=== PATIENT | female | born 1935 | race Caucasian/White ===

== ENCOUNTER 2018-02-05 15:28 | Emergency (ER) | payer OTHER, MEDICARE ==
[2018-02-05 16:26] LABS: Absolute Lymphocytes (CBC) 0.8 K/uL (0.7-4.9); Absolute Neutrophil 6.8 K/uL (1.8-8.0); Basophils % 0.7 % (0-1.3); Eosinophils % 0.5 % (0-4.4); Hematocrit 41.1 % (36.0-45.0); MCH 33.3 pg (27.0-35.0); MCV 96.1 fL (80-100); MPV 7.3 fL (7.6-11.3); Monocytes % 11.2 % (3.3-12.3); RBC Red Blood Cell Count 4.28 M/uL (3.86-4.86)
[2018-02-05 16:40] LABS: Albumin 3.9 g/dL (3.4-5.0); Bilirubin Direct 0.2 mg/dL (0-0.2); Bilirubin Total 0.8 mg/dL (0.2-1.0); Potassium 4.3 mmol/L (3.5-5.1); Protein, Total 7.1 g/dL (6.4-8.2)
--- NOTE | 2018-02-05 18:53 | RAD REPORT ---
EXAM DESCRIPTION: CT - Stone Protocol - 02/05/2018 6:37 pm CLINICAL HISTORY: Back pain radiating to the right lower quadrant, possible diverticulitis COMPARISON: None. TECHNIQUE: Axial 5 mm thick images were obtained without oral or IV contrast. The [id number] span s the entirety of the system including uppermost abdomen and lung bases. All CT scans are performed using dose optimization technique as appropriate and may include automated exposure control or mA/KV adjustment according to patient size. FINDINGS: No hydronephrosis is present and no obstructing ureteral calculi. No suspicious renal mass es. Isodense masses and pyelonephritis are not excluded on a stone protocol CT scan. Urinary bladder is contracted. No bladder calculi seen. Uterus and ovaries show no suspicious finding for age. Imaged portions of the liver, spleen and pancreas show no suspicious findings on non-contrast imaging . No gallbladder or biliary tree abnormality identified. No significant adrenal finding. No suspicious bowel findings. Diverticulosis is present without diverticulitis. Hyperdense material i n the colon is presumed to be medication. No mass or bulky lymphadenopathy noted. No free air, free fluid or inflammatory stranding. Patient wilkins s a large hiatal hernia with approximately 1/3 of the stomach intrathoracic. Disc and bony degenerative changes are present. There is advanced lumbar degenerative change with a l eft convex scoliotic curvature. No pathologic bone process. IMPRESSION: No hydronephrosis or obstructing calculus. No acute finding seen. Bladder is mostly c ontracted. Isodense masses and pyelonephritis are not excluded on stone protocol technique. Left-sided diverticulosis without diverticulitis. No acute GI process seen. Large hiatal hernia with approximately 1/3 of the stomach intrathoracic.
[2018-02-05] MEDS ORDERED: NA CHLORIDE 0.9% 500 ML ONE (18:55)
--- NOTE | 2018-02-05 19:08 | EDPHYS ---
Physician Documentation [facility] Name: Veronica Hernadez Age: 82 yrs Sex: Female : 1935 Arrival Date: 02/05/2018 Time: 15:32 Bed 20 Private MD: out of town, doctor ED Physician Jerrod Mayen HPI: 02/05 17:00 This 82 yrs old Female presents to ER via Ambulatory with complaints of Back pm1 Pain. 17:00 The patient presents with pain that is acute. pm1 17:00 The symptoms are located in the right low back. Onset: The symptoms/episode pm1 began/occurred 4 day(s) ago. The pain radiates to the right lower quadrant. Associated signs and symptoms: Pertinent negatives: chest pain, dysuria, fever, headache, numbness, tingling, vomiting, weakness. The problem was sustained from unknown cause. Modifying factors: The patient symptoms are alleviated by nothing, the patient symptoms are aggravated by bending, movement. Severity of symptoms: in the emergency department the symptoms are unchanged. The patient has been recently seen by a physician: patient went to [facility] ER for evaluation of her right low back pain and was diagnosed with musculoskeletal pain and discharged with Tylenol #3. Patient did not take the medications for pain. Contacted her PCP over the phone and was prescribed Cipro and Flagyl for possible diverticulitis. Patient is presenting here today because her pain has not improved with antibiotics. Historical: - Allergies: 15:50 Aspirin; aj - Home Meds: 15:50 Tylenol #3 Oral [Active]; levothyroxine 50 mcg tab 1 tab once daily [Active]; aj omeprazole 20 mg Oral cpDR 1 cap once daily [Active]; diltiazem HCl 240 mg Oral cp24 1 cap once daily [Active]; olmesartan oral oral [Active]; famotidine 20 mg Oral tab 1 tab once daily [Active]; cholestyramine (with sugar) oral oral [Active]; Cipro 500 mg Oral tab 1 tab 2 times per day [Active]; Flagyl 500 mg Oral tab 1 tab every 6 hours [Active]; - PMHx: 15:50 Diverticulitis; Hypothyroidism; GERD; Hypertension; aj - Immunization history:: Adult Immunizations up to date. - Social history:: Smoking status: Patient/guardian denies using tobacco. - Ebola Screening: : Patient negative for fever greater than or equal to 101.5 degrees Fahrenheit, and additional compatible Ebola Virus Disease symptoms Patient denies exposure to infectious person Patient denies travel to an Ebola-affected area in the 21 days before illness onset No symptoms or risks identified at this time. ROS: 17:00 Constitutional: Negative for fever, chills, and weight loss, Eyes: Negative for injury, pm1 pain, redness, and discharge, ENT: Negative for injury, pain, and discharge, Neck: Negative for injury, pain, and swelling, Cardiovascular: Negative for chest pain, palpitations, and edema, Respiratory: Negative for shortness of breath, cough, wheezing, and pleuritic chest pain, Abdomen/GI: Negative for abdominal pain, nausea, vomiting, diarrhea, and constipation. 17:00 : Negative for injury, bleeding, discharge, and swelling, MS/Extremity: Negative for injury and deformity, Skin: Negative for injury, rash, and discoloration, Neuro: Negative for headache, weakness, numbness, tingling, and seizure. 17:00 Back: Positive for flank pain, on the right. Exam: 17:00 Constitutional: This is a well developed, well nourished patient who is awake, alert, pm1 and in no acute distress. Head/Face: Normocephalic, atraumatic. Eyes: Pupils equal round and reactive to light, extra-ocular motions intact. Lids and lashes normal. Conjunctiva and sclera are non-icteric and not injected. Cornea within normal limits. Periorbital areas with no swelling, redness, or edema. ENT: Nares patent. No nasal discharge, no septal abnormalities noted. Tympanic membranes are normal and external auditory canals are clear. Oropharynx with no redness, swelling, or masses, exudates, or evidence of obstruction, uvula midline. Mucous membranes moist. Neck: Trachea midline, no thyromegaly or masses palpated, and no cervical lymphadenopathy. Supple, full range of motion without nuchal rigidity, or vertebral point tenderness. No Meningismus. Chest/axilla: Normal chest wall appearance and motion. Nontender with no deformity. No lesions are appreciated. Cardiovascular: Regular rate and rhythm with a normal S1 and S2. No gallops, murmurs, or rubs. Normal PMI, no JVD. No pulse deficits. Respiratory: Lungs have equal breath sounds bilaterally, clear to auscultation and percussion. No rales, rhonchi or wheezes noted. No increased work of breathing, no retractions or nasal flaring. 17:00 Skin: Warm, dry with normal turgor. Normal color with no rashes, no lesions, and no evidence of cellulitis. MS/ Extremity: Pulses equal, no cyanosis. Neurovascular intact. Full, normal range of motion. 17:00 Abdomen/GI: Inspection: abdomen appears normal, Bowel sounds: normal, Palpation: abdomen is soft and non-tender, in all quadrants, mass, is not appreciated, rebound tenderness, is not appreciated. 17:00 Back: pain, that is mild, of the right low back, vertebral tenderness, is not appreciated. 17:00 Neuro: Orientation: is normal, Motor: strength is normal, strength is 5/5 in all extremities, Gait: is steady, at a normal pace, without difficulty. Vital Signs: 15:51 BP 154 / 75; Pulse 100; Resp 18; Temp 97.4; Pulse Ox 98% on R/A; Weight 95.25 kg; aj Height 5 ft. 4 in. (162.56 cm); 16:42 BP 139 / 56; Pulse 94; Resp 18; Pulse Ox 99% on R/A; hj 17:19 BP 134 / 54; Pulse 81; Resp 18; Pulse Ox 99% on R/A; hj 18:07 BP 133 / 57; Pulse 82; Resp 18; Pulse Ox 100% on R/A; hj 19:21 BP 150 / 70; Pulse 80; Resp 18; Temp 97.7(O); Pulse Ox 98% ; ea 19:36 BP 151 / 75; Pulse 88; Resp 18; Pulse Ox 98% on R/A; mt 15:51 Body Mass Index 36.05 (95.25 kg, 162.56 cm) aj MDM: 15:52 Patient medically screened. pm1 19:02 Data reviewed: vital signs. Data interpreted: Pulse oximetry: on room air is 100 %. pm1 Interpretation: normal. Counseling: I had a detailed discussion with the patient and/or guardian regarding: the historical points, exam findings, and any diagnostic results supporting the discharge/admit diagnosis, lab results, radiology results, the need for outpatient follow up, to return to the emergency department if symptoms worsen or persist or if there are any questions or concerns that arise at home. 19:02 ED course: Patient aware of all chronic findings on the CT scan. Patient knows about pm1 the diverticulosis and hiatal hernia. Patient aware of her hyponatremia. It is a chronic condition for her. Instructed the patient to continue taking antibiotics because I did not initiate them. Instructed to contact her PCP to discuss plan for antibiotics. Patient has Tylenol #3 but did not take them since evaluation at [facility]. instructed patient to initiate them for pain. Will give the patient tramadol PO here and if effective for her pain I will give her a prescription. 02/05 16:17 Order name: Basic Metabolic Panel EDMS 02/05 16:17 Order name: Liver (Hepatic) Function EDMS 02/05 16:17 Order name: Lipase EDMS 02/05 16:17 Order name: Creatinine (Radiology Only) EDMS 02/05 16:17 Order name: CBC with Automated Diff EDMS 02/05 16:27 Order name: CBC with Automated Diff; Complete Time: 16:29 EDMS 02/05 16:40 Order name: Basic Metabolic Panel; Complete Time: 17:03 EDMS 02/05 16:40 Order name: Liver (Hepatic) Function; Complete Time: 17:03 EDMS 02/05 16:03 Order name: IV Saline Lock; Complete Time: 16:10 pm1 02/05 16:03 Order name: Labs collected and sent; Complete Time: 16:11 pm1 02/05 16:03 Order name: Urine Dipstick-Ancillary (obtain specimen); Complete Time: 18:31 pm1 02/05 16:40 Order name: Lipase; Complete Time: 17:03 EDMS 02/05 16:54 Order name: Creatinine (Radiology Only); Complete Time: 17:03 EDMS 02/05 17:06 Order name: CT Stone Protocol; Complete Time: 18:54 pm1 02/05 18:29 Order name: Urine Dipstick--Ancillary (enter results); Complete Time: 19:43 eb Administered Medications: 18:47 Drug: NS 0.9% 500 ml Route: IV; Rate: bolus; Site: left antecubital; hj 19:40 Follow up: IV Status: Completed infusion; IV Intake: 500ml ea 19:09 Drug: traMADol 50 mg Route: PO; ea 19:50 Follow up: Response: No adverse reaction; Pain is decreased ea Disposition: 02/06 07:18 Co-signature as Attending Physician, Jerrod Mayen MD. rn Disposition: 02/05/18 19:08 Discharged to Home. Impression: Low back pain. - Condition is Stable. - Discharge Instructions: Back Pain, Adult, Musculoskeletal Pain, Back Injury Prevention, [id number]. - Prescriptions for Tramadol 50 mg Oral Tablet - take 1 tablet by ORAL route every 8 hours as needed; 12 tablet. - Medication Reconciliation Form, Thank You Letter, Antibiotic Education, Prescription Opioid Use form. - Follow up: Emergency Department; When: As needed; Reason: Worsening of condition. Follow up: Private Physician; When: 2 - 3 days; Reason: Recheck today's complaints, Continuance of care, Re-evaluation by your physician. - Problem is new. - Symptoms have improved. Signatures: Dispatcher [employer] [facility] Melody Healy RN RN aj Nieto, Roman, MD MD rn Joaquin, Henry, RN RN hj Marinas, Patrick, NP [employer] pm1 Kiah Thomas RN RN ea Corrections: (The following items were deleted from the chart) 02/05 16:11 16:03 UA MICROSCOPIC+U.LAB.BRZ ordered. [facility] 18:07 16:03 BASIC METABOLIC PANEL+C.LAB.BRZ ordered. [facility] 18:07 16:03 CBC+H.LAB.BRZ ordered. [facility] 18:07 16:03 Creatinine for Radiology+C.LAB.BRZ ordered. [facility] 18:07 16:03 HEPATIC FUNCTION+C.LAB.BRZ ordered. [facility] 18:07 16:03 LIPASE+C.LAB.BRZ ordered. [facility] 20:06 19:08 02/05/2018 19:08 Discharged to Home. Impression: Low back pain. Condition is ea Stable. Forms are Medication Reconciliation Form, Thank You Letter, Antibiotic Education, Prescription Opioid Use. Follow up: Emergency Department; When: As needed; Reason: Worsening of condition. Follow up: Private Physician; When: 2 - 3 days; Reason: Recheck today's complaints, Continuance of care, Re-evaluation by your physician. Problem is new. Symptoms have improved. pm1
--- NOTE | 2018-02-05 19:08 | ER ---
Nurse's Notes [facility] Name: Veronica Hernadez Age: 82 yrs Sex: Female : 1935 Arrival Date: 02/05/2018 Time: 15:32 Bed 20 Private MD: out of town, doctor Diagnosis: Low back pain Presentation: 02/05 15:46 Presenting complaint: Patient states: Low back pain that radiates around to RLQ. aj Patient reports being seen in [facility] ER and DX with musculoskeletal pain. Patient called PCP on Saturday and started on ABX to treat possible diverticulitis. Patient reports no improvement with ABX x 48 hours. Reports pain is worse in the morning and goes away completely when laying down. Transition of care: patient was not received from another setting of care. Onset of symptoms was February 02, 2018. Risk Assessment: Do you want to hurt yourself or someone else? Patient reports no desire to harm self or others. Initial Sepsis Screen: Does the patient meet any 2 criteria? No. Patient's initial sepsis screen is negative. Does the patient have a suspected source of infection? No. Patient's initial sepsis screen is negative. Care prior to arrival: None. 15:46 Method Of Arrival: Ambulatory 15:46 Acuity: THERON 4 aj Triage Assessment: 15:51 General: Appears in no apparent distress. comfortable, Behavior is calm, cooperative, aj appropriate for age. Pain: Complains of pain in buttocks. Neuro: Level of Consciousness is awake, alert, obeys commands, Oriented to person, place, time, situation, Appropriate for age. Respiratory: Airway is patent Respiratory effort is even, unlabored, Respiratory pattern is regular, symmetrical. Derm: Skin is intact, is healthy with good turgor, Skin is pink, warm \T\ dry. normal. Musculoskeletal: Range of motion: intact in all extremities, Reports pain in buttocks. Historical: - Allergies: 15:50 Aspirin; aj - Home Meds: 15:50 Tylenol #3 Oral [Active]; levothyroxine 50 mcg tab 1 tab once daily [Active]; aj omeprazole 20 mg Oral cpDR 1 cap once daily [Active]; diltiazem HCl 240 mg Oral cp24 1 cap once daily [Active]; olmesartan oral oral [Active]; famotidine 20 mg Oral tab 1 tab once daily [Active]; cholestyramine (with sugar) oral oral [Active]; Cipro 500 mg Oral tab 1 tab 2 times per day [Active]; Flagyl 500 mg Oral tab 1 tab every 6 hours [Active]; - PMHx: 15:50 Diverticulitis; Hypothyroidism; GERD; Hypertension; aj - Immunization history:: Adult Immunizations up to date. - Social history:: Smoking status: Patient/guardian denies using tobacco. - Ebola Screening: : Patient negative for fever greater than or equal to 101.5 degrees Fahrenheit, and additional compatible Ebola Virus Disease symptoms Patient denies exposure to infectious person Patient denies travel to an Ebola-affected area in the 21 days before illness onset No symptoms or risks identified at this time. Screenin:53 Abuse screen: Denies threats or abuse. Denies injuries from another. Nutritional hj screening: No deficits noted. Tuberculosis screening: No symptoms or risk factors identified. Fall Risk Secondary diagnosis (15 points). Assessment: 15:50 General: Appears in no apparent distress. uncomfortable, Behavior is calm, cooperative, hj appropriate for age. Pain: Complains of pain in abdomen. Neuro: Level of Consciousness is awake, alert, obeys commands, Oriented to person, place, time, situation, Appropriate for age. Cardiovascular: Capillary refill < 3 seconds Patient's skin is warm and dry. Respiratory: Airway is patent Respiratory effort is even, unlabored, Respiratory pattern is regular, symmetrical. GI: Abdomen is non-distended, Reports lower abdominal pain. : No signs and/or symptoms were reported regarding the genitourinary system. EENT: No signs and/or symptoms were reported regarding the EENT system. Derm: No signs and/or symptoms reported regarding the dermatologic system. Musculoskeletal: No signs and/or symptoms reported regarding the musculoskeletal system. 16:45 Reassessment: Patient and/or family updated on plan of care and expected duration. Pain hj level reassessed. Patient is alert, oriented x 3, equal unlabored respirations, skin warm/dry/pink. awaiting results and POC;. 17:19 Reassessment: Patient and/or family updated on plan of care and expected duration. Pain hj level reassessed. Patient is alert, oriented x 3, equal unlabored respirations, skin warm/dry/pink. no further concerns;. 18:07 Reassessment: awaiting CT;. hj 18:21 Reassessment: wheeled to CT;. hj 18:35 Reassessment: wheeled back to room;. hj 19:19 General: Appears in no apparent distress. Behavior is calm, cooperative, appropriate ea for age. Pain: Complains of pain in abdomen. Neuro: Level of Consciousness is awake, alert, obeys commands, Oriented to person, place, time, situation. Cardiovascular: Heart tones S1 S2 present Patient's skin is warm and dry. Respiratory: Airway is patent Respiratory effort is even, unlabored, Respiratory pattern is regular, symmetrical, Breath sounds are clear bilaterally. GI: Abdomen is non-distended, Bowel sounds present X 4 quads. Reports lower abdominal pain. : No signs and/or symptoms were reported regarding the genitourinary system. EENT: No signs and/or symptoms were reported regarding the EENT system. Derm: No signs and/or symptoms reported regarding the dermatologic system. Skin is pink, warm \T\ dry. Musculoskeletal: No signs and/or symptoms reported regarding the musculoskeletal system. 19:55 Reassessment: Patient and/or family updated on plan of care and expected duration. Pain ea level reassessed. Patient is alert, oriented x 3, equal unlabored respirations, skin warm/dry/pink. Discharge instructions given to patient,verbalized the understanding of instrucitons. Vital Signs: 15:51 BP 154 / 75; Pulse 100; Resp 18; Temp 97.4; Pulse Ox 98% on R/A; Weight 95.25 kg; aj Height 5 ft. 4 in. (162.56 cm); 16:42 BP 139 / 56; Pulse 94; Resp 18; Pulse Ox 99% on R/A; hj 17:19 BP 134 / 54; Pulse 81; Resp 18; Pulse Ox 99% on R/A; hj 18:07 BP 133 / 57; Pulse 82; Resp 18; Pulse Ox 100% on R/A; hj 19:21 BP 150 / 70; Pulse 80; Resp 18; Temp 97.7(O); Pulse Ox 98% ; ea 19:36 BP 151 / 75; Pulse 88; Resp 18; Pulse Ox 98% on R/A; mt 15:51 Body Mass Index 36.05 (95.25 kg, 162.56 cm) ED Course: 15:32 Patient arrived in ED. mr 15:32 out of town, doctor is Private Physician. mr 15:47 Triage completed. aj 15:51 Arm band placed on right wrist. Patient placed in an exam room. aj 15:52 Aric Irizarry, JOSE is Primary Nurse. 15:52 Darien Doty NP is PHCP. pm1 15:52 Jerrod Mayen MD is Attending Physician. pm1 15:53 Patient has correct armband on for positive identification. Placed in gown. Bed in low hj position. Call light in reach. Side rails up X 1. Adult w/ patient. 16:10 Initial lab(s) drawn, by me, sent to lab. Inserted saline lock: 20 gauge in left hj antecubital area, using aseptic technique. Blood collected. 18:[address] via wheelchair. in 18:37 CT Stone Protocol In Process Unspecified. EDMS 18:38 CT completed. Patient tolerated procedure well. Patient moved back from [place]. nj 19:21 No provider procedures requiring assistance completed. ea 19:50 IV discontinued, intact, bleeding controlled, No redness/swelling at site. Pressure ea dressing applied. Administered Medications: 18:47 Drug: NS 0.9% 500 ml Route: IV; Rate: bolus; Site: left antecubital; hj 19:40 Follow up: IV Status: Completed infusion; IV Intake: 500ml ea 19:09 Drug: traMADol 50 mg Route: PO; ea 19:50 Follow up: Response: No adverse reaction; Pain is decreased ea Intake: 19:40 IV: 500ml; Total: 500ml. ea Outcome: 19:08 Discharge ordered by . pm1 19:55 Discharged to home ambulatory, with family. ea 19:55 Condition: improved 19:55 Discharge instructions given to patient, family, Instructed on discharge instructions, follow up and referral plans. medication usage, Demonstrated understanding of instructions, follow-up care, medications, Prescriptions given X 1. 20:06 Patient left the ED. ea Signatures: Dispatcher [employer] EDMS Melody Healy RN RN aj GandhiDaylin mr Aric Irizarry RN RN Darien Doty NP [employer] EXECUTIVE pm1 Karthik Marvin Moriah mt Antunez, Elena, RN RN ea Corrections: (The following items were deleted from the chart) 15:51 15:46 Presenting complaint: Patient states: Low back pain that radiates around to RLQ. aj Patient reports being seen in [facility] ER and DX with musculoskeletal pain. Patient called PCP on Saturday and started on ABX to treat possible diverticulitis. Patient reports no improvement with ABX x 48 hours aj 15:46 Acuity: THERON 3 aj aj
[2018-02-05 19:11] LABS: Urine Blood NEGATIVE (NEG); Urine Glucose NEGATIVE (NEG); Urine Protein NEGATIVE (NEG); Urine Specific Gravity 1.015 (1.005-1.030)
[2018-02-05] MEDS ORDERED: TRAMADOL HCL 50 MG TAB ONE (19:12)
== END 2018-02-05 20:06 | disposition home or self-care (01) ==
LOC: ER 15:28
DX: M54.5 Low back pain (principal); I10 Essential (primary) hypertension; E03.9 Hypothyroidism, unspecified; Z88.6 Allergy status to analgesic agent
CPT/HCPCS: 36415; 74176; 76377; 80048; 80076; 81003; 83690; 85025; 96360; 99284

== ENCOUNTER 2018-09-04 14:13 | Observation (INO) | payer OTHER, MEDICARE ==
--- OUTSIDE RECORDS SUMMARY | 2018-09-04 14:40 | XMS REPORT | Clinical Summary ---
:1935 Author Organization [facility] Address [address] [place] [address] Care Team Providers Name Role Phone Ramonita Medley MD Primary Care Provider Allergies Active Allergy Reactions Severity Noted Date Comments Qom-Jfnvryzbobopt-Rctf-Buffers Other (See Comments) 07/24/2018 Causes asthma Hydrochlorothiazide GI Intolerance Triamterene GI Intolerance Medications Medication Sig Dispensed Refills Start End Status Date Date levothyroxine levothyroxine 50 0 01/25/20 Active (SYNTHROID, LEVOXYL) mcg tablet 15 50 mcg tablet omeprazole (PriLOSEC) TK 1 C PO QD IN 3 05/15/19 Active 20 MG capsule THE MORNING 19 diltiazem CD (CARTIA Cartia XT 240 mg 0 04/12/20 Active XT) 240 MG 24 hr capsule,extended 15 capsule release olmesartan (BENICAR) TK 1 T PO QD 3 05/22/19 Active 40 MG tablet 19 famotidine (PEPCID) 20 TK 1 T PO QD HS 2 05/15/19 Active MG tablet 19 CALCIUM ORAL Take by mouth. 0 Active mvi, adult with vit K Infuse into a 0 Active (multiple vitamin) venous catheter. 3,300 unit- 150 mcg/10 mL injection psyllium husk Take by mouth. 0 Active (METAMUCIL ORAL) multivitamin with Take by mouth. 0 Active minerals (HAIR,SKIN AND NAILS ORAL) naproxen (NAPROSYN) Take by mouth 2 0 Active 125 mg/5 mL suspension (two) times a day. methylPREDNISolone follow package 21 tablet 0 07/09/19 (MEDROL, BUSHRA,) 4 mg directions 19 019 tabletIndications: Low back pain, unspecified back pain laterality, unspecified chronicity, with sciatica presence unspecified, Degenerative scoliosis in adult patient, Lumbar radiculopathy, acute meloxicam (MOBIC) 15 Take 1 tablet (15 15 tablet 0 07/09/19 Discontinued mg tabletIndications: mg total) by 19 019 Low back pain, mouth daily for unspecified back pain 14 days. laterality, unspecified chronicity, with sciatica presence unspecified, Degenerative scoliosis in adult patient, Lumbar radiculopathy, acute meloxicam (MOBIC) 15 TAKE 1 TABLET(15 90 tablet 0 07/12/19 Discontinued mg tabletIndications: MG) BY MOUTH 19 019 Low back pain, DAILY FOR 14 DAYS unspecified back pain laterality, unspecified chronicity, with sciatica presence unspecified, Degenerative scoliosis in adult patient, Lumbar radiculopathy, acute acetaminophen-codeine Take 1-2 tablets 10 tablet 0 07/17/19 (TYLENOL WITH CODEINE by mouth every 4 19 019 #3) 300-30 mg per (four) hours as tablet needed for moderate pain for up to 5 days. Active Problems Problem Noted Date Carpal tunnel syndrome of left wrist 07/21/2018 Overview: Added automatically from request for surgery [id number] Encounters Date Type Specialty Care Team Description 08/01/2018 Office Visit Orthopedic Surgery Bernard Hernadez Carpal tunnel syndrome MD Ramsey of left wrist (Primary Dx) 07/25/2018 Anesthesia Event General Surgery Annabelle Durant FNP 07/25/2018 Surgery General Surgery Bernard Hernadez Left endoscopic carpal MD Ramsey tunnel release 07/25/2018 Hospital Encounter General Surgery Bernard Hernadez MD 07/24/2018 Office Visit Orthopedic Surgery Ilya Morales, Spinal stenosis of lumbar region without neurogenic claudication (Primary Dx); Bethel Gilmore MD Degeneration of lumbar intervertebral disc; Lumbar radiculopathy, acute 07/24/2018 Pre-Admit Testing Pre-Admission Bernard Hernadez Preop testing ( Primary Appointment Testing MD Ramsey Dx) 07/24/2018 Telephone Orthopedic Surgery Shannon Kirkland MA 07/21/2018 Orders Only Orthopedic Surgery Ilya Morales, Lumbar radiculopathy , acute (Primary Dx); Bethel Gilmore MD Spinal stenosis of lumbar region, unspecified whether neurogenic claudication present 07/21/2018 Transcribe Orders Orthopedic Surgery Bernard Hernadez Carpal tunnel syndrome MD Ramsey of left wrist (Primary Dx) 07/16/2018 Office Visit Orthopedic Surgery Bernard Hernadez Carpal tunnel syndrome MD Ramsey of left wrist (Primary Dx) 07/16/2018 Hospital Encounter Radiology Ilya Morales, Low back pain, unspecified back pain laterality, unspecified chronicity, with sciatica presence unspecified; Bethel Gilmore MD Degenerative scoliosis in adult patient; Lumbar radiculopathy, acute 07/08/2018 Office Visit Orthopedic Surgery Ilya Morales, Lumbar radiculopathy, acute (Primary Dx); Bethel Gilmore MD Low back pain, unspecified back pain laterality, unspecified chronicity, with sciatica presence unspecified; Degenerative scoliosis in adult patient 07/08/2018 Office Visit Orthopedic Surgery Bernard Hernadez Carpal tunnel syndrome MD Ramsey of left wrist (Primary Dx) 07/08/2018 Refill Orthopedic Surgery Ilya Morales, Low back pain, unspecified back pain laterality, unspecified chronicity, with sciatica presence unspecified; Bethel Gilmore MD Degenerative scoliosis in adult patient; Lumbar radiculopathy, acute after 09/03/2017 Family History Medical History Relation Name Comments Alcohol abuse Father Hypertension Mother Stroke Mother Relation Name Status Comments Father Mother Social History Tobacco Use Types Packs/Day Years Used Date Never Smoker Smokeless Tobacco: Never Used Alcohol Use Drinks/Week oz/Week Comments Yes 7 Glasses of wine Sex Assigned at Date Recorded Not on file Job Start Date Occupation Industry Not on file Not on file Not on file Travel History Travel Start Travel End No recent travel history available. Last Filed Vital Signs Vital Sign Reading Time Taken Blood Pressure 110/55 07/25/2018 10:00 AM CDT Pulse 71 07/25/2018 10:00 AM CDT Temperature 36.5 C (97.7 F) 07/25/2018 9:03 AM CDT Respiratory Rate 16 07/25/2018 10:00 AM CDT Oxygen Saturation 97% 07/25/2018 10:00 AM CDT Inhaled Oxygen Concentration - - Weight 86.2 kg (190 lb) 07/25/2018 6:24 AM CDT Height 162.6 cm (5' 4") 07/25/2018 6:24 AM CDT Body Mass Index 32.61 07/25/2018 6:24 AM CDT Plan of Treatment Date Type Specialty Care Team Description 10/16/2018 Office Visit [place] [address] [place] [address] [phone] Health Maintenance Due Date Last Done Comments SHINGLES VACCINES (#1) 1985 INFLUENZA VACCINE 11/20/2018 01/20/2015 PNEUMOCOCCAL POLYSACCHARIDE VACCINE AGE 65 Completed 03/30/2014 AND OVER 65+ PNEUMOCOCCAL VACCINE Completed 11/06/2016, 03/30/2014 Procedures Procedure Name Priority Date/Time Associated Diagnosis Comments LA AN ELECTIVE Routine 07/25/2018 7:45 AM SUPRAGLOTTIC AIRWAY CDT Procedure Note - Virgilio Valencia CRNA - 07/25/2018 7:45 AM CDT Airway Date/Time: 07/25/2018 7:38 AM Performed by: Virgilio Valencia CRNA Authorized by: Carleen Smiley MD Location: OR Urgency: Elective Difficult Airway: No Anesthesiologist: Carleen Smiley MD Resident/HEALTH AND WELLNESS ADVISOR/AA: Virgilio Valencia CRNA Performed by: anesthesiologist and resident/HEALTH AND WELLNESS ADVISOR/AA Preoxygenated with 100% O2: Yes C-spine Precautions Maintained Throughout: Yes Mask Ventilation: Not attempted Final Airway Type: Supraglottic airway Final LMA: Classic LMA Size: 3 Number of Attempts at Approach: 1 POC GLUCOSE Routine 07/25/2018 6:32 AM Results for this CDT procedure are in the results section. ESTIMATED GFR Routine 07/24/2018 2:07 PM Results for this CDT procedure are in the results section. BASIC METABOLIC Routine 07/24/2018 2:07 PM Preop testing Results for this PANEL CDT procedure are in the results section. HC COMPLETE BLD Routine 07/24/2018 2:07 PM Preop testing Results for this COUNT W/AUTO DIFF CDT procedure are in the results section. ECG PRE/POST OP Routine 07/24/2018 1:18 PM Preop testing Results for this CDT procedure are in the results section. MRI LUMBAR SPINE WO Routine 07/16/2018 1:10 PM Low back pain, Results for this CONTRAST CDT unspecified back procedure are in pain laterality, the results unspecified section. chronicity, with sciatica presence unspecified Degenerative scoliosis in adult patient Lumbar radiculopathy, acute XR LUMBAR SPINE Routine 07/08/2018 3:03 PM Low back pain, Results for this COMPLETE 4+ VW CDT unspecified back procedure are in pain laterality, the results unspecified section. chronicity, with sciatica presence unspecified after 09/03/2017 Results POC glucose (07/25/2018 6:32 AM CDT) POC glucose 104 (H) 65 - 99 mg/dL [facility] Comment: HOSPITAL RN Notified Meter ID: [id number] Rewinder Operator: Megan Mcgrath Performing Organization Address [facility] Phone Number [facility] DEPARTMENT OF PATHOLOGY [address] [place] [address] Estimated GFR (07/24/2018 2:07 PM CDT) Estimated GFR 86 mL/min/1.73 m2 [facility] Comment: [facility] CatergoryUnitsInterpretation G1 >=90 Normal or high G2 60-89Mildly decreased [id number] to moderately decreased [id number] to severely decreased G4 15-29Severely decreased G5 <15Kidney failure The eGFR was calculated using the Chronic Kidney Disease Epidemiology Collaboration (CKD-EPI) equation. Interpretation is based on recommendations of the National Kidney Foundation-Kidney Disease Outcomes Quality Initiative (NKF-KDOQI) published in 2014. Specimen Plasma specimen Performing Organization Address City/[facility]/Zipcode Phone Number [facility] DEPARTMENT OF PATHOLOGY [address] [place] [address] CBC with platelet and differential (07/24/2018 2:07 PM CDT) WBC 7.8 4.5 - 11.0 k/uL [facility] RBC 4.16 (L) 4.20 - 5.50 m/uL [facility] HGB 12.8 12.0 - 16.0 g/dL [facility] HCT 37.1 37.0 - 47.0 % [facility] MCV 89.2 82.0 - 100.0 fL [facility] MCH 30.8 27.0 - 34.0 pg [facility] MCHC 34.5 31.0 - 37.0 g/dL [facility] RDW - SD 39.8 37.0 - 55.0 fL [facility] MPV 9.4 6.9 - 11.0 fL [facility] Platelet count 296 150 - 400 K/uL [facility] Nucleated RBC 0.00 /100 WBC [facility] Neutrophils 69.3 (H) 39.0 - 69.0 % [facility] Lymphocytes 15.5 (L) 25.0 - 45.0 % [facility] Monocytes 12.0 (H) 0.0 - 10.0 % [facility] Eosinophils 1.4 0.0 - 5.0 % [facility] Basophils 0.6 0.0 - 1.0 % [facility] Immature granulocytes 1.2 (H) 0.0 - 1.0 % [facility] Specimen Blood Performing Organization Address City/[facility] Hospitalcode Phone Number [facility] DEPARTMENT OF PATHOLOGY [address] [place] [address] [place] [address] HOSPITAL Basic metabolic panel (07/24/2018 2:07 PM CDT) Sodium 126 (L) 135 - 148 mEq/L [facility] Potassium 4.4 3.5 - 5.0 mEq/L [facility] Chloride 90 (L) 98 - 112 mEq/L [facility] CO2 23 (L) 24 - 31 mEq/L [facility] Anion gap 13@ANIO 7 - 15 mEq/L [facility] BUN 10 8 - 23 mg/dL [facility] Creatinine 0.55 0.50 - 0.90 mg/dL [facility] Glucose 99 65 - 99 mg/dL [facility] Calcium 9.1 8.8 - 10.2 mg/dL [facility] Specimen Plasma specimen Performing Organization Address City/[facility]/Zipcode Phone Number [facility] DEPARTMENT OF PATHOLOGY [address] [facility] [place] [address] AND [facility]OMIC [facility] [place] [address] [facility] [place] [address] HOSPITAL ECG Pre/Post Op (07/24/2018 1:18 PM CDT) Ventricular rate 88 [facility] Atrial rate 88 [facility] LA interval 172 [facility] QRSD interval 72 [facility] QT interval 340 [facility] QTC interval 411 [facility] P axis 1 28 [facility] QRS axis 1 -19 [facility] T wave axis 41 [facility] EKG impression Sinus rhythm with premature atrial [facility] complexes-Anterior infarct , age undetermined-Abnormal ECG-No previous ECGs available- Narrative Performed At Performing Organization Address City/State/Zipcode Phone Number [facility] M[facility] [address] [place] [address] MRI Lumbar Spine Wo Contrast (07/16/2018 1:10 PM CDT) Narrative Performed At EXAMINATION:MRI LUMBAR SPINE WO CONTRAST [facility] CLINICAL HISTORY:M54.5 Low back pain, M41.50 Other secondary scoliosis site unspecified, lumbar radiculitis COMPARISON:Lumbar spine radiographs dated July 08, 2018 TECHNIQUE: Multiplanar MRI imaging withoutIV Gadolinium was performed. FINDINGS: There is a left-sided scoliosis of the lumbar spine with apex centered at L2- L3 level. The lumbar spine alignment otherwise unremarkable. Vertebral bodies are preserved. Bone marrow is unremarkable with no evidence of acute fracture or suspicious marrow-replacing lesion. . The distal spinal cord appears unremarkable. The conus medullaris terminates at the L1-L2 level and appears unremarkable. The cauda equina is unremarkable. L1-2: Diffuse disc bulge with bilateral facet arthropathy. No canal stenosis or foraminal narrowing. L2-3: Diffuse disc bulge asymmetric to the left side. No canal stenosis or significant foraminal narrowing. L3-4: Diffuse disc bulge with bilateral facet arthropathy ligamentous hypertrophy resulting in moderate canal stenosis with moderate severe bilateral lateral recess narrowing right more than the left. T here is mild right foraminal narrowing. The left foramen is patent. L4-5: Diffuse disc bulge with bilateral facet arthropathy asymmetric to the left side. There is no canal stenosis. There is mild left lateral recess narrowing. There is no foraminal narrowing. L5-S1: Bilateral facet arthropathy asymmetric to the left side. No canal stenosis or significant foraminal narrowing. Visualized paraspinal soft tissues are unremarkable. 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 Multifactorial spondylotic moderate canal stenosis with moderate to severe bilateral lateral recess narrowing at L3-L4 level. [facility]-[id number] Procedure Note Hm Interface, Radiology Results Incoming - 07/16/2018 1:30 PM CDT EXAMINATION: MRI LUMBAR SPINE WO CONTRAST CLINICAL HISTORY: M54.5 Low back pain, M41.50 Other secondary scoliosis site unspecified, lumbar radiculitis COMPARISON: Lumbar spine radiographs dated July 08, 2018 TECHNIQUE: Multiplanar MRI imaging without IV Gadolinium was performed. FINDINGS: There is a left-sided scoliosis of the lumbar spine with apex centered at L2- L3 level. The lumbar spine alignment otherwise unremarkable. Vertebral bodies are preserved. Bone marrow is unremarkable with no evidence of acute fracture or suspicious marrow-replacing lesion. . The distal spinal cord appears unremarkable. The conus medullaris terminates at the L1-L2 level and appears unremarkable. The cauda equina is unremarkable. L1-2: Diffuse disc bulge with bilateral facet arthropathy. No canal stenosis or foraminal narrowing. L2-3: Diffuse disc bulge asymmetric to the left side. No canal stenosis or significant foraminal narrowing. L3-4: Diffuse disc bulge with bilateral facet arthropathy ligamentous hypertrophy resulting in moderate canal stenosis with moderate severe bilateral lateral recess narrowing right more than the left. There is mild right foraminal narrowing. The left foramen is patent. L4-5: Diffuse disc bulge with bilateral facet arthropathy asymmetric to the left side. There is no canal stenosis. There is mild left lateral recess narrowing. There is no foraminal narrowing. L5-S1: Bilateral facet arthropathy asymmetric to the left side. No canal stenosis or significant foraminal narrowing. Visualized paraspinal soft tissues are unremarkable. 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 Multifactorial spondylotic moderate canal stenosis with moderate to severe bilateral lateral recess narrowing at L3-L4 level. [facility]-[id number] Performing Organization Address City/State/Zipcode Phone Number [facility] [address] [place] [address] XR Lumbar Spine Complete 4+ Vw (07/08/2018 3:03 PM CDT) Narrative Performed At X-ray lumbar spine multiple views shows left-sided apex at the L2 50 [facility] degree curve. Multilevel disc degeneration and facet arthrosis. Performing Organization Address [facility]/Zipcode Phone Number [facility] [address] [place] [address] after 09/03/2017 Insurance Payer Benefit Plan / Group Subscriber ID Type Phone Address MEDICARE MEDICARE PART A AND B xxxxxxxxxxx Medicare [place], [place] AARP AARP SUPPLEMENT xxxxxxxxxxx Commercial Advance Directives Patient has advance care planning documents on file. For more information, please contact:Kieran Hathaway[address] [place] [address]
[2018-09-04 15:00] LABS: Absolute Lymphocytes (CBC) 1.3 K/uL (0.7-4.9); Absolute Monocytes 0.7 K/uL (0.1-1.3); Absolute Neutrophil 3.4 K/uL (1.8-8.0); Eosinophils % 4.1 % (0-4.4); Hematocrit 39.7 % (36.0-45.0); Lymphocytes % 23.3 % (15.3-44.8); MPV 7.5 fL (7.6-11.3); Monocytes % 11.6 % (3.3-12.3); Protime INR 0.91; RBC Red Blood Cell Count 4.25 M/uL (3.86-4.86)
[2018-09-04 15:16] LABS: ALT/SGPT 23 U/L (12-78); AST/SGOT 28 U/L (15-37); Albumin 3.6 g/dL (3.4-5.0); Alkaline Phosphatase 100 U/L (45-117); BUN Blood Urea Nitrogen 9 mg/dL (7-18); Bicarbonate 21 mmol/L (21-32); Bilirubin Direct 0.2 mg/dL (0-0.2); Bilirubin Total 0.5 mg/dL (0.2-1.0); Glucose Level 111 mg/dL (74-106); Magnesium 2.2 mg/dL (1.8-2.4); NT PRO-BNP 106 pg/mL (<450); Potassium 3.9 mmol/L (3.5-5.1); Protein, Total 7.1 g/dL (6.4-8.2); Sodium Level 129 mmol/L (136-145); Troponin (Emerg Dept Use Only) < 0.02 ng/mL (0.0-0.045)
--- NOTE | 2018-09-04 15:19 | RAD REPORT ---
EXAM DESCRIPTION: RAD - Chest Single View - 09/04/2018 3:03 pm CLINICAL HISTORY: syncope Chest pain. COMPARISON: [facility] Protocol dated 02/05/2018 FINDINGS: Portable technique limits examination quality. The lungs are grossly clear. The heart is mildly enlarged size. A moderate hiatal hernia suspected IMPRESSION: No acute intrathoracic process suspected.
--- NOTE | 2018-09-04 16:19 | ER ---
Nurse's Notes [facility] Name: Veronica Hernadez Age: 83 yrs Sex: Female : 1935 Arrival Date: 09/04/2018 Time: 14:26 Bed 8 Private MD: Diagnosis: Syncope and collapse Presentation: 09/04 14:26 Presenting complaint: EMS states: "pt was with friend at restaurant playing cards and aa5 the friend reported pt went into a blank stare and started shuffling the cards and became unresponsive". EMS reports pt was unresponsive upon arrival with BP of 54/39 and increased to 113/53 after being placed in Trendelenburg and pt awakened. Pt currently A\\T\\O x 4, denies any complaints. Pt states "the last thing I remember is the light bothering me and I was getting my sunglasses on". 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 14:26 Transition of care: patient was not received from another setting of care. Onset of aa5 symptoms was September 04, 2018. Risk Assessment: Do you want to hurt yourself or someone else? Patient reports no desire to harm self or others. Initial Sepsis Screen: Does the patient meet any 2 criteria? No. Patient's initial sepsis screen is negative. Does the patient have a suspected source of infection? No. Patient's initial sepsis screen is negative. Care prior to arrival: IV initiated. 20 GA, in the right antecubital area, Glucose check: 123. 14:26 Acuity: THERON 2 aa5 14:26 Method Of Arrival: EMS: [facility] aa5 Historical: - Allergies: 14:26 Aspirin; aa5 14:26 Zyrtec; aa5 14:26 Mucinex; aa5 - Home Meds: 16:55 levothyroxine 50 mcg tab 1 tab once daily [Active]; omeprazole 20 mg Oral cpDR 1 cap aa5 once daily [Active]; diltiazem HCl 240 mg Oral cp24 1 cap once daily [Active]; Benicar 40 mg oral tab 1 tab once daily [Active]; famotidine 20 mg Oral tab 1 tab once daily [Active]; meloxicam 15 mg oral tab 1 tab once daily [Active]; cholestyramine (bulk) miscellaneous [Active]; calcium [Active]; naproxen as needed [Active]; Metamucil Smooth Texture Oral [Active]; multivitamin oral oral [Active]; - PMHx: 14:26 Diverticulitis; GERD; Hypertension; Hypothyroidism; Arthritis; aa5 - Immunization history:: Flu vaccine is up to date. - Social history:: Smoking status: Patient/guardian denies using tobacco. - Ebola Screening: : No symptoms or risks identified at this time. Screenin:30 Abuse screen: Denies threats or abuse. Nutritional screening: No deficits noted. aa5 Tuberculosis screening: No symptoms or risk factors identified. Fall Risk IV access (20 points). Total Fisher Fall Scale indicates No Risk (0-24 pts). Assessment: 14:26 General: Appears comfortable, Behavior is calm, cooperative. Pain: Denies pain. Neuro: aa5 Level of Consciousness is awake, alert, obeys commands, Oriented to person, place, time, situation, Fitter Type Bar And Segment are equal bilaterally Moves all extremities. Speech is normal, Facial symmetry appears normal, Pupils are PERRLA, Denies weakness blurred vision dizziness, paresthesias numbness headache photophobia. Cardiovascular: Heart tones S1 S2 present Rhythm is regular. Respiratory: Airway is patent Respiratory effort is even, unlabored, Respiratory pattern is regular, symmetrical, Breath sounds are clear bilaterally. Denies cough, shortness of breath. GI: Abdomen is round Bowel sounds present X 4 quads. Abd is soft and non tender X 4 quads. Patient currently denies nausea, vomiting. : No signs and/or symptoms were reported regarding the genitourinary system. EENT: No signs and/or symptoms were reported regarding the EENT system. Derm: Skin is pink, warm \\T\\ dry. Musculoskeletal: Range of motion: intact in all extremities. 15:15 Reassessment: Patient is alert, oriented x 3, equal unlabored respirations, skin aa5 warm/dry/pink. Patient denies pain at this time. Pt sitting up in bed, denies any complaints. . 15:15 Cardiovascular: Rhythm is sinus rhythm. aa5 16:40 Reassessment: Patient is alert, oriented x 3, equal unlabored respirations, skin aa5 warm/dry/pink. Pt assisted with bedside commode, urine specimen collected. Urine micro sent to lab. Pt placed back in bed. Pt tolerated well, pt denies any complaints at this time, awaiting room assignment. . 16:44 Reassessment: Dr. Rebolledo (Hospitalist) at bedside . aa5 17:30 Reassessment: Patient is alert, oriented x 3, equal unlabored respirations, skin aa5 warm/dry/pink. Pt given cup of water, Awaiting room assignment . 18:17 Reassessment: Patient is alert, oriented x 3, equal unlabored respirations, skin aa5 warm/dry/pink. Pt given food tray . 18:18 Reassessment: Unsuccessful attempt to call report to admitting nurse. . aa5 19:46 Reassessment: Patient is alert, oriented x 3, equal unlabored respirations, skin bb warm/dry/pink. IV site intact, patent with fluids infusing. Report called to Pradeep GARCIA for room 424. Vital Signs: 14:26 BP 153 / 64; Pulse 80; Resp 16 S; Temp 98.0(O); Pulse Ox 98% on R/A; Weight 90.72 kg aa5 (R); Height 5 ft. 4 in. (162.56 cm) (R); Pain 0/10; 14:40 BP 136 / 60; Pulse 80; Resp 16 S; Pulse Ox 98% on R/A; aa5 15:16 BP 140 / 71; Pulse 81; Resp 18 S; Pulse Ox 100% on R/A; aa5 15:30 BP 125 / 73; Pulse 81; Resp 16 S; Pulse Ox 100% on R/A; aa5 15:48 BP 114 / 51; Pulse 79; Resp 16 S; Pulse Ox 98% on R/A; aa5 16:35 BP 125 / 52; Pulse 85; Resp 16 S; Temp 97.8(TE); Pulse Ox 98% on R/A; Pain 0/10; aa5 17:30 BP 118 / 51; Pulse 81; Resp 16 S; Pulse Ox 97% on R/A; Pain 0/10; aa5 18:30 BP 121 / 53; Pulse 77; Resp 18 S; Pulse Ox 97% on R/A; Pain 0/10; aa5 14:26 Body Mass Index 34.33 (90.72 kg, 162.56 cm) aa5 ED Course: 14:26 Patient arrived in ED. aa5 14:26 Arm band placed on Patient placed in an exam room, on a stretcher. aa5 14:26 Patient has correct armband on for positive identification. Placed in gown. Bed in low aa5 position. Call light in reach. Side rails up X2. adult basic education teacher on. Pulse ox on. NIBP on. 14:28 EKG done, by soil conservation technician. reviewed by Hunter Meléndez MD. sm3 14:30 IV 20 G to R AC by EMS, unable to flush, IV was dc'd, catheter intact, bleeding aa5 controlled, band aid applied. . 14:35 Betina Gaines, JOSE is Primary Nurse. aa5 14:35 Initial lab(s) drawn, by me, sent to lab. Inserted saline lock: 20 gauge in left aj1 antecubital area, using aseptic technique. Blood collected. 14:39 Rui Champion PA is PHCP. cp 14:39 Hunter Meléndez MD is Attending Physician. cp 14:40 Triage completed. aa5 15:03 XRAY Chest (1 view) In Process Unspecified. EDMS 16:18 Fredis Rebolledo DO is Hospitalizing Provider. cp 16:42 Radiology exam delayed due to DR. REBOLLEDO WITH PT AT THIS TIME. 2 17:29 CT Head Brain wo Cont In Process Unspecified. EDMS 19:05 Report given to JOSE Mcgrath. aa5 19:47 No provider procedures requiring assistance completed. Patient admitted, IV remains in bb place. Administered Medications: 18:11 Drug: NS 0.9% 1000 ml Route: IV; Rate: 100 ml/hr; Site: left antecubital; aj1 19:05 Follow up: IV Status: Infusion continued upon admission aa5 19:48 Follow up: IV Status: Infusion continued upon admission; IV Intake: 175ml bb Intake: 19:48 IV: 175ml; Total: 175ml. bb Outcome: 16:18 Decision to Hospitalize by Provider. cp 19:47 Admitted to Tele accompanied by tech, family with patient, via stretcher, room 424, bb with chart, Report called to Pradeep GARCIA 19:47 Condition: stable 19:47 Instructed on the need for admit. 19:51 Patient left the ED. rr5 Signatures: Dispatcher [employer] EDMS Deb Garcia RN RN aj1 Sagrario Hernandez RN RN bb Betina Gaines RN RN aa5 Rui Champion PA PA cp McGuire, [facility] Kerri Bowman 3 Alcides Allan, JOSE RN rr5 Corrections: (The following items were deleted from the chart) 14:53 14:28 EKG done, by soil conservation technician. reviewed by Hunter Meléndez MD 3 3 17:04 16:15 Reassessment: Patient is alert, oriented x 3, equal unlabored respirations, skin aa5 warm/dry/pink. Pt assisted with bedside commode, urine specimen collected. Urine micro sent to lab. Pt placed back in bed. Pt tolerated well, pt denies any complaints at this time, awaiting room assignment. . aa5
--- NOTE | 2018-09-04 16:19 | EDPHYS ---
Physician Documentation [facility] Name: Veronica Hernadez Age: 83 yrs Sex: Female : 1935 Arrival Date: 09/04/2018 Time: 14:26 Bed 8 Private MD: ED Physician Hunter Meléndez HPI: 09/04 14:48 This 83 yrs old Female presents to ER via EMS with complaints of Syncope. cp 14:48 The patient has experienced syncope, lost consciousness. Onset: The symptoms/episode cp began/occurred today. Duration: This was a single episode, that lasted 3 minute(s). Associated injury: The patient did not suffer any apparent associated injury. 14:48 Context: the episode(s) was witnessed, by a friend, occurred at a restaurant, occurred cp while the patient was playing cards. Just prior to the episode the patient experienced no apparent symptoms. 14:48 Associated signs and symptoms: Pertinent negatives: abdominal pain, chest pain, cp diarrhea, dizziness, headache, palpitations, vomiting, weakness. Current symptoms: Currently, the patient is not experiencing any symptoms, the patient feels back to baseline. Historical: - Allergies: 14:26 Aspirin; aa5 14:26 Zyrtec; aa5 14:26 Mucinex; aa5 - Home Meds: 16:55 levothyroxine 50 mcg tab 1 tab once daily [Active]; omeprazole 20 mg Oral cpDR 1 cap aa5 once daily [Active]; diltiazem HCl 240 mg Oral cp24 1 cap once daily [Active]; Benicar 40 mg oral tab 1 tab once daily [Active]; famotidine 20 mg Oral tab 1 tab once daily [Active]; meloxicam 15 mg oral tab 1 tab once daily [Active]; cholestyramine (bulk) miscellaneous [Active]; calcium [Active]; naproxen as needed [Active]; Metamucil Smooth Texture Oral [Active]; multivitamin oral oral [Active]; - PMHx: 14:26 Diverticulitis; GERD; Hypertension; Hypothyroidism; Arthritis; aa5 - Immunization history:: Flu vaccine is up to date. - Social history:: Smoking status: Patient/guardian denies using tobacco. - Ebola Screening: : No symptoms or risks identified at this time. ROS: 14:55 Constitutional: Negative for body aches, chills, fever, poor PO intake. cp 14:55 Eyes: Negative for injury, pain, redness, and discharge. cp 14:55 ENT: Negative for drainage from ear(s), ear pain, sore throat, difficulty swallowing, cp difficulty handling secretions. 14:55 Neck: Negative for pain with movement, pain at rest, stiffness. 14:55 Cardiovascular: Negative for chest pain, edema, palpitations. 14:55 Respiratory: Negative for cough, shortness of breath, wheezing. 14:55 Abdomen/GI: Negative for abdominal pain, nausea, vomiting, and diarrhea, black/tarry stool, rectal bleeding. 14:55 Neuro: Positive for syncope, Negative for altered mental status, dizziness, headache, weakness. 14:55 All other systems are negative. Exam: 14:35 ECG was reviewed by the Attending Physician. cp 15:00 Constitutional: The patient appears in no acute distress, alert, awake, cp non-diaphoretic, non-toxic, well developed, well nourished. 15:00 Head/Face: Normocephalic, atraumatic. Eyes: Pupils equal round and reactive to light, cp extra-ocular motions intact. Lids and lashes normal. Conjunctiva and sclera are non-icteric and not injected. Cornea within normal limits. Periorbital areas with no swelling, redness, or edema. ENT: Nares patent. No nasal discharge, no septal abnormalities noted. Tympanic membranes are normal and external auditory canals are clear. Oropharynx with no redness, swelling, or masses, exudates, or evidence of obstruction, uvula midline. Mucous membranes moist. 15:00 Neck: External neck: is normal, ROM/movement: is normal, is supple, without pain, no range of motions limitations, no nuchal rigidity. 15:00 Chest/axilla: Inspection: normal, Palpation: is normal, no crepitus, no tenderness. 15:00 Cardiovascular: Rate: normal, Rhythm: regular, Heart sounds: murmur, not appreciated, Edema: is not appreciated, JVD: is not appreciated. 15:00 Respiratory: the patient does not display signs of respiratory distress, Respirations: normal, no use of accessory muscles, no retractions, no splinting, no tachypnea, labored breathing, is not present, Breath sounds: are clear throughout, no decreased breath sounds, no stridor, no wheezing. 15:00 Abdomen/GI: Inspection: abdomen appears normal, Bowel sounds: active, all quadrants, Palpation: abdomen is soft and non-tender, in all quadrants, voluntary guarding, is not appreciated, involuntary guarding, is not appreciated. 15:00 Back: pain, is absent, ROM is normal. 15:00 Skin: cellulitis, is not appreciated, no rash present. 15:00 Neuro: Orientation: to person, place \T\ time. Mentation: is normal, Cerebellar function: is grossly normal, Motor: moves all fours, strength is normal, Sensation: is normal. Vital Signs: 14:26 BP 153 / 64; Pulse 80; Resp 16 S; Temp 98.0(O); Pulse Ox 98% on R/A; Weight 90.72 kg aa5 (R); Height 5 ft. 4 in. (162.56 cm) (R); Pain 0/10; 14:40 BP 136 / 60; Pulse 80; Resp 16 S; Pulse Ox 98% on R/A; aa5 15:16 BP 140 / 71; Pulse 81; Resp 18 S; Pulse Ox 100% on R/A; aa5 15:30 BP 125 / 73; Pulse 81; Resp 16 S; Pulse Ox 100% on R/A; aa5 15:48 BP 114 / 51; Pulse 79; Resp 16 S; Pulse Ox 98% on R/A; aa5 16:35 BP 125 / 52; Pulse 85; Resp 16 S; Temp 97.8(TE); Pulse Ox 98% on R/A; Pain 0/10; aa5 17:30 BP 118 / 51; Pulse 81; Resp 16 S; Pulse Ox 97% on R/A; Pain 0/10; aa5 18:30 BP 121 / 53; Pulse 77; Resp 18 S; Pulse Ox 97% on R/A; Pain 0/10; aa5 14:26 Body Mass Index 34.33 (90.72 kg, 162.56 cm) aa5 MDM: 14:39 Patient medically screened. cp 15:00 Differential Diagnosis: cardiac arrhythmia, cerebrovascular accident, GI bleed, cp idiopathic syncope, seizure, vasovagal episode. 16:17 Data reviewed: vital signs, nurses notes, lab test result(s), EKG, radiologic studies, plain films, and as a result, I will admit patient. Test interpretation: by ED physician or midlevel provider: ECG, plain radiologic studies. 16:30 Physician consultation: Fredis Lockhart DO was called at 16:20, was contacted at 16:20, cp regarding admission, to the telemetry unit. patient's condition, and will see patient in ED, shortly. 09/04 14:34 Order name: Basic Metabolic Panel [facility] 09/04 14:34 Order name: CBC with Diff [facility] 09/04 14:34 Order name: LFT's [facility] 09/04 14:34 Order name: Magnesium; Complete Time: 15:19 [facility] 09/04 14:34 Order name: NT PRO-BNP; Complete Time: 15:19 [facility] 09/04 14:34 Order name: PT-INR; Complete Time: 15:19 [facility] 09/04 14:34 Order name: Troponin (emerg Dept Use Only); Complete Time: 15:19 [facility] 09/04 15:20 Interpretation: Abnormal: TROPED < 0.02. 09/04 14:34 Order name: XRAY Chest (1 view); Complete Time: 15:54 [facility] 09/04 14:35 Order name: Basic Metabolic Panel; Complete Time: 15:19 [facility] 09/04 15:19 Interpretation: Normal except: NA 129; CL 97; GLUC 111; GFR 58. 09/04 14:35 Order name: CBC with Automated Diff; Complete Time: 15:19 [facility] 09/04 15:19 Interpretation: Normal except: MPV 7.5. 09/04 14:35 Order name: Liver (Hepatic) Function; Complete Time: 15:19 [facility] 09/04 15:55 Interpretation: Normal except: A/G 1.0. 09/04 15:22 Order name: Urine Microscopic Only; Complete Time: 17:58 09/04 17:59 Interpretation: UWBC 5-10; Reviewed. 09/04 16:53 Order name: Urine Dipstick--Ancillary (enter results); Complete Time: 17:06 09/04 17:06 Interpretation: Reviewed. 09/04 17:21 Order name: Urine Culture [facility] 09/04 14:34 Order name: EKG; Complete Time: 14:35 [facility] 09/04 14:34 Order name: Cardiac monitoring; Complete Time: 14:34 [facility] 09/04 14:34 Order name: EKG - Nurse/Tech; Complete Time: 14:34 [facility] 09/04 14:34 Order name: IV Saline Lock; Complete Time: 14:34 [facility] 09/04 14:34 Order name: Labs collected and sent; Complete Time: 14:34 [facility] 09/04 14:34 Order name: O2 Per Protocol; Complete Time: 14:34 [facility] 09/04 14:34 Order name: O2 Sat Monitoring; Complete Time: 14:35 [facility] 09/04 15:22 Order name: Urine Dipstick-Ancillary (obtain specimen); Complete Time: 16:32 09/04 16:31 Order name: CT Head Brain wo Cont; Complete Time: 17:58 09/04 17:59 Interpretation: Report reviewed. 09/04 17:06 Order name: Diet Heart Healthy; Complete Time: 17:07 aa5 EC:35 Rate is 82 beats/min. Rhythm is regular. MT interval is normal. QRS interval is normal. QT interval is normal. Interpreted by me. Reviewed by me. Administered Medications: 18:11 Drug: NS 0.9% 1000 ml Route: IV; Rate: 100 ml/hr; Site: left antecubital; aj 19:05 Follow up: IV Status: Infusion continued upon admission aa5 19:48 Follow up: IV Status: Infusion continued upon admission; IV Intake: 175ml bb Disposition: 09/05 11:57 Co-signature as Attending Physician, Hunter Meléndez MD. Disposition: 09/04/18 16:18 Hospitalization ordered by Fredis Lockhart for Observation. Preliminary diagnosis is Syncope and collapse. - Bed requested for Telemetry/MedSurg (observation). - Status is Observation. rr5 - Condition is Stable. - Problem is new. - Symptoms have improved. UTI on Admission? No Signatures: Dispatcher [employer] EDDeb Kinney RN RN aj1 Betina Gaines RN RN aa5 Rui Champion PA PA cp Starr, Gregory, MD MD Susanne Hyde Raymond, RN RN rr5 Sagrario Hernandez RN bb Corrections: (The following items were deleted from the chart) 09/04 17:56 16:18 Hospitalization Ordered by Fredis Lockhart DO for Observation. Preliminary eb diagnosis is Syncope and collapse. Bed requested for Telemetry/MedSurg (observation). Status is Observation. Condition is Stable. Problem is new. Symptoms have improved. UTI on Admission? No. cp 19:51 17:56 09/04/2018 16:18 Hospitalization Ordered by Fredis Lockhart DO for Observation. rr5 Preliminary diagnosis is Syncope and collapse. Bed requested for Telemetry/MedSurg (observation). Status is Observation. Condition is Stable. Problem is new. Symptoms have improved. UTI on Admission? No. eb 09/05 15:41 09/04 14:48 Context: the episode(s) was witnessed, by a friend, occurred at home, cp occurred while the patient was playing cards. Just prior to the episode the patient experienced no apparent symptoms, cp 09/05 15:46 09/03 15:00 Constitutional: The patient appears in no acute distress, alert, awake, cp non-diaphoretic, non-toxic, well developed, well nourished, cp 09/05 15:46 09/03 15:00 Head/Face: Normocephalic, atraumatic. Eyes: Pupils equal round and reactive cp to light, extra-ocular motions intact. Lids and lashes normal. Conjunctiva and sclera are non-icteric and not injected. Cornea within normal limits. Periorbital areas with no swelling, redness, or edema. ENT: Nares patent. No nasal discharge, no septal abnormalities noted. Tympanic membranes are normal and external auditory canals are clear. Oropharynx with no redness, swelling, or masses, exudates, or evidence of obstruction, uvula midline. Mucous membranes moist. Neck: Trachea midline, no thyromegaly or masses palpated, and no cervical lymphadenopathy. Supple, full range of motion without nuchal rigidity, or vertebral point tenderness. No Meningismus. Chest/axilla: Normal chest wall appearance and motion. Nontender with no deformity. No lesions are appreciated. cp 09/05 15:46 09/03 15:00 Cardiovascular: Rate: normal, Rhythm: regular, Heart sounds: murmur, not cp appreciated, Edema: is not appreciated, JVD: is not appreciated, cp 09/05 15:46 09/03 15:00 Respiratory: the patient does not display signs of respiratory distress, cp Respirations: normal, no use of accessory muscles, no retractions, no splinting, no tachypnea, labored breathing, is not present, Breath sounds: are clear throughout, no decreased breath sounds, no stridor, no wheezing, cp 09/05 14:46 09/03 15:00 Abdomen/GI: Inspection: abdomen appears normal, Bowel sounds: active, all cp quadrants, Palpation: abdomen is soft and non-tender, in all quadrants, cp 09/05 14:09/03 15:00 Back: pain, is absent, ROM is normal, cp cp 09/05 14:09/03 15:00 Skin: no rash present. cp cp 09/05 14:09/03 15:00 Neuro: Orientation: to person, place \T\ time. Mentation: is normal, cp Cerebellar function: is grossly normal, Motor: moves all fours, strength is normal, Sensation: is normal, cp
[2018-09-04 17:03] LABS: Urine Blood NEGATIVE (NEG); Urine Glucose NEGATIVE (NEG); Urine Protein TRACE (NEG); Urine Specific Gravity 1.015 (1.005-1.030)
[2018-09-04 17:19] LABS: Urine Bacteria <20 /HPF (<20); Urine Culture Reflex Order REFLEXED; Urine RBC NONE SEEN /HPF (NONE SEEN)
--- NOTE | 2018-09-04 17:36 | RAD REPORT ---
EXAM DESCRIPTION: CT - Head Brain Wo Cont - 09/04/2018 5:28 pm CLINICAL HISTORY: SYNCOPE COMPARISON: No comparisons TECHNIQUE: All CT scans are performed using dose optimization technique as appropriate and may inclu de automated exposure control or mA/KV adjustment according to patient size. FINDINGS: No intracranial hemorrhage, hydrocephalus or extra-axial fluid collection.Mild generalized brain atrophy is present with mild periventricular and deep white matter chronic microvascular ische lisa changes.No areas of brain edema or evidence of midline shift. The paranasal sinuses and mastoids are clear. The calvarium is intact. IMPRESSION: No acute intracranial abnormality.
--- NOTE | 2018-09-04 17:52 | P.HP ---
Certification for Inpatient Patient admitted to: Observation With expected LOS: <2 Midnights Patient will require the following post-hospital care: None Practitioner: I am a practitioner with admitting privileges, knowledge of patient current condition, hospital course, and medical plan of care. Services: Services provided to patient in accordance with Admission requirements found in Title 42 Section 412.3 of the Code of Federal Regulations Patient History Date of Service: 09/04/18 Primary Care Provider: Dr. Torres([place], [place]) Reason for admission: Syncope History of Present Illness: 83-year-old female presented to the emergency room after syncopal episode. This occurred today while playing cards with friends. She start to have some flashes to her vision. Then she had this syncopal episode. It lasted about 2- 3 min. When EMS arrived her blood pressure was 54/39. This was recheck and improved. By the time she arrived to the emergency room, blood pressure was stable and back to within normal range. Patient with history of hypertension, hypothyroidism, GERD with hiatal hernia. Patient takes diltiazem for 240 mg and Olmesartan 40 mg daily. She reports getting a new medication from the pharmacy for her blood pressure medication-olmesartan. No other changes in her medications have been noted. She is not had any prior history of TIA or CVA. Patient denied any chest pain, shortness of breath, nausea, vomiting. In the ER patient evaluated. CBC unremarkable. Sodium 129, potassium 3.9, GFR 58. Urinalysis unremarkable. Troponin negative. Chest x-ray unremarkable CT of the head was pending. Patient was admitted for further evaluation. When I saw the patient ER, she appeared comfortable. Family was at bedside. Home medications list reviewed: Yes - Past Medical/Surgical History Diabetic: No -: Hypertension -: Hypothyroidism -: GERD with hiatal hernia -: Irritable bowel -: History of breast cancer -: Left breast lumpectomy -: Appendectomy Psychosocial/ Personal History: Patient is a . She has 2 children. She lives at home. Patient is independent - Family History Mother -: Heart disease, Stroke - Social History Smoking Status: Never smoker Alcohol use: Yes CD- Drugs: No Caffeine use: Yes Place of Residence: Home Review of Systems General: Weakness, As per HPI Eyes: Unremarkable ENT: As per HPI Respiratory: Unremarkable Cardiovascular: Unremarkable Gastrointestinal: Unremarkable Genitourinary: Unremarkable Musculoskeletal: Unremarkable Integumentary: Unremarkable Neurological: As per HPI Lymphatics: Unremarkable Physical Examination - Physical Exam General: Alert, In no apparent distress, Oriented x3, Cooperative HEENT: Atraumatic, Normocephalic, PERRLA, Mucous membr. moist/pink, EOMI Neck: Supple, No Thyromegaly Respiratory: Clear to auscultation bilaterally, Normal air movement Cardiovascular: Normal pulses, Regular rate/rhythm Gastrointestinal: Normal bowel sounds, Soft and benign, Non-distended, No tenderness, No masses, No rebound, No guarding Musculoskeletal: No erythema, No tenderness, No warmth Integumentary: No tenderness/swelling, No erythema, No warmth, No cyanosis Neurological: Normal speech, Normal strength at 5/5 x4 extr, Normal tone, Normal affect - Studies Laboratory Data (last 24 hrs) 09/04/18 14:35: PT 10.8, INR 0.91 09/04/18 14:35: WBC 5.7, Hgb 13.6, Hct 39.7, Plt Count 289 09/04/18 14:35: Sodium 129 L, Potassium 3.9, BUN 9, Creatinine 0.93, Glucose 111 H, Magnesium 2.2, Total Bilirubin 0.5, AST 28, ALT 23, Alkaline Phosphatase 100 Assessment and Plan - Plan Impression: Syncope likely orthostatic hypotension related to medication Hypertension Hyponatremia Hypothyroidism GERD with hiatal hernia History of irritable bowel Plan: Syncope likely orthostatic hypotension related to medication: Patient will be admitted for further evaluation. Await CT finding. Will place on telemetry. Will monitor cardiac enzymes. Will obtain echocardiogram, carotid Doppler and stroke protocol MRI. Will start IV fluids. Suspect ortho static hypotension from medication. Will will continue with diltiazem but hold all losartan. Will recheck orthostatic tomorrow. What physical therapy and occupational therapy assess ambulation. Will start aspirin, DVT prophylaxis-Lovenox, Lipitor. Will continue to monitor and address appropriately. Will reassess tomorrow. Anticipate discharge in the next 24 hr. If no significant changes noted. Hypertension: Continue as above. Will monitor blood pressures closely. Hold olmesartan Hyponatremia: Will provide IV fluids. Will recheck in the morning. Hypothyroidism: Restart home medication. Will check tsh GERD with hiatal hernia: Will provide medication. History of irritable bowel: Obtain home medication. Patient with history of chronic diarrhea. Discharge Plan: Home Plan to discharge in: 24 Hours - Advance Directives Does patient have a Living Will: No Does patient have a Durable POA for Healthcare: No - Code Status/Comfort Care Code Status Assessed: Yes (Patient is full code.) Time Spent Managing Pts Care (In Minutes): 55
[2018-09-04] MEDS ORDERED: NA CHLORIDE 0.9% 1,000 ML ONE (18:10)
[2018-09-04] MEDS ORDERED: ACETAMINOPHEN 500 MG TAB PO PRN (20:35)
[2018-09-04] MEDS ORDERED: ONDANSETRON 4 MG/2 ML VIAL IV PRN (20:35)
[2018-09-04] MEDS ORDERED: ATORVASTATIN 40 MG TAB PO SCH (21:00)
[2018-09-04 21:30] LABS: CKMB Creatine Kinase MB 1.6 ng/mL (0.3-3.6); Creatine Phosphokinase 106 U/L (26-192); Troponin I < 0.02 ng/mL (0.0-0.045)
[2018-09-04] MEDS: NA CHLORIDE 0.9% 1,000 ML IV SCH (22:36)
--- NOTE | 2018-09-04 22:58 | RAD REPORT ---
EXAM DESCRIPTION: MRI - Brain W/Wo Cont - 09/04/2018 10:04 pm CLINICAL HISTORY: . Headache, syncope, CVA symptomology COMPARISON: MRA Head Wo Cont dated 09/04/2018; Head Brain Wo Cont dated 09/04/2018; Chest Single View dated 09/04/2018 TECHNIQUE: Multi-sequence, multiplanar MR imaging of the brain was performed with contrast. FINDINGS: No intracranial hemorrhage, hydrocephalus, or extra-axial fluid collection.Mild brain atro phy with mild chronic microvascular ischemic changes in the periventricular white matter. No edema or shift of midline structures. No intracranial mass. DWI is negative for acute CVA. The midline structures are normally formed. Mastoid air cells and paranasal sinuses are clear. Post-contrast images show no abnormal enhancement to suggest tumor or infection. IMPRESSION: Negative for acute CVA or other acute intracranial abnormality. No pathologic post-contrast enhancement suspected.
--- NOTE | 2018-09-04 22:59 | RAD REPORT ---
EXAM DESCRIPTION: MRI - MRA Head Wo Cont - 09/04/2018 10:04 pm CLINICAL HISTORY: syncope CVA COMPARISON: Head Brain Wo Cont dated 09/04/2018 FINDINGS: 3D noncontrast [id number] MR angiography of the [place] was performed. No aneurysm, flow-limiting stenosis or vascular malformation is seen. origins of both posterior communicating artery is noted, normal variant. Forward flow seen in codominant vertebral arteries. The visualized dural venous sinuses appear patent. IMPRESSION: No significant flow abnormality of the [place] is identified.
--- NOTE | 2018-09-04 23:00 | RAD REPORT ---
EXAM DESCRIPTION: - CP - 09/04/2018 10:26 pm CLINICAL HISTORY: syncope Headache, drowsiness, CVA COMPARISON: No comparisons TECHNIQUE: Real-time sonographic evaluation of both carotid systems was performed. Doppler interroga tion was performed with waveform tracing bilaterally. FINDINGS: Normal high resistance waveforms are noted in both external carotid arteries. The common c arotid arteries and internal carotid arteries show normal low resistance waveforms. Mild hard plaquing is seen in both proximal ICAs. Peak systolic and end diastolic velocity values and the ICA/CCA ratios are in the non-hemodynamically significant range. Antegrade flow seen in both vertebral arteries. IMPRESSION: Mild hard plaquing seen in both proximal ICAs. No evidence of a hemodynamically significant stenosis.
--- NOTE | 2018-09-04 23:01 | RAD REPORT ---
EXAM DESCRIPTION: MRI - MRA Neck W/Wo Cont - 09/04/2018 10:04 pm CLINICAL HISTORY: . Headache, syncope, drowsiness COMPARISON: No comparisons FINDINGS: Contrast enhance 2D [id number] MR angiography of the neck vessels was performed. A left aortic arch is identified with normal branching pattern of the great vessels. No significant common carotid artery stenosis. No significant internal carotid artery stenosis seen bilaterally. Antegrade flow is seen in codominant vertebral arteries. IMPRESSION: No significant flow abnormality of the neck vessels.
[2018-09-05 00:03] VITALS: BMI 33.5
[2018-09-05] MEDS: NA CHLORIDE 0.9% 1,000 ML IV SCH (05:55)
[2018-09-05] MEDS ORDERED: PANTOPRAZOLE 40MG TABLET PO SCH (06:30)
[2018-09-05] MEDS ORDERED: LEVOTHYROXINE SOD 0.05 MG TABLET PO SCH (06:30)
[2018-09-05 06:58] LABS: Absolute Lymphocytes (CBC) 1.5 K/uL (0.7-4.9); Absolute Monocytes 0.5 K/uL (0.1-1.3); Absolute Neutrophil 2.4 K/uL (1.8-8.0); Basophils % 1.3 % (0-1.3); Eosinophils % 5.8 % (0-4.4); Hematocrit 38.3 % (36.0-45.0); Lymphocytes % 31.5 % (15.3-44.8); MPV 7.7 fL (7.6-11.3); Monocytes % 10.9 % (3.3-12.3); RBC Red Blood Cell Count 4.13 M/uL (3.86-4.86)
[2018-09-05 07:11] LABS: BUN Blood Urea Nitrogen 7 mg/dL (7-18); Bicarbonate 26 mmol/L (21-32); CKMB Creatine Kinase MB 1.4 ng/mL (0.3-3.6); Creatine Phosphokinase 113 U/L (26-192); Glucose Level 84 mg/dL (74-106); HDL Cholesterol 110 mg/dL (40-60); LDL Cholesterol, Calculated 64 (<130); Magnesium 2.4 mg/dL (1.8-2.4); Potassium 4.2 mmol/L (3.5-5.1); Sodium Level 137 mmol/L (136-145); Troponin I < 0.02 ng/mL (0.0-0.045)
--- NOTE | 2018-09-05 08:29 | EKG ---
Test Date: 2018-09-04 Test Time: 14:28:43 Helper Coordinator: STEPHANIE MEASUREMENT RESULTS: Intervals: Rate: 82 AK: 174 QRSD: 78 QT: 374 QTc: 436 [place]: P: 61 AK: 174 QRS: 8 T: 59 INTERPRETIVE STATEMENTS: Normal sinus rhythm Normal ECG No previous ECG available for comparison Electronically Signed On 09-05-18 08:28:28 CDT by Jesus More
[2018-09-05] MEDS ORDERED: FOLIC ACID 1 MG TABLET PO SCH (09:00)
[2018-09-05] MEDS ORDERED: ASPIRIN EC 81 MG TAB PO SCH (09:00)
[2018-09-05] MEDS ORDERED: DILTIAZEM HCL 120 MG SR CAP PO SCH (09:00)
[2018-09-05] MEDS ORDERED: ENOXAPARIN 40 MG/0.4 ML SQ SCH (09:00)
[2018-09-05 10:18] VITALS: O2SAT 96
--- NOTE | 2018-09-05 11:32 | P.DS ---
Admission Date: 09/04/18 Discharge Date: 09/05/18 Primary Care Provider: Dr. Torres([place], [place]) Disposition: ROUTINE DISCHARGE Discharge Condition: GOOD Reason for Admission: Syncope Consultations: none Procedures: MRI Brain: FINDINGS: No intracranial hemorrhage, hydrocephalus, or extra-axial fluid collection.Mild brain atrophy with mild chronic microvascular ischemic changes in the periventricular white matter. No edema or shift of midline structures. No intracranial mass. DWI is negative for acute CVA. The midline structures are normally formed. Mastoid air cells and paranasal sinuses are clear. Post-contrast images show no abnormal enhancement to suggest tumor or infection. IMPRESSION: Negative for acute CVA or other acute intracranial abnormality. No pathologic post-contrast enhancement suspected. MRA Neck: COMPARISON: No comparisons FINDINGS: Contrast enhance 2D [id number]-[id number] MR angiography of the neck vessels was performed. A left aortic arch is identified with normal branching pattern of the great vessels. No significant common carotid artery stenosis. No significant internal carotid artery stenosis seen bilaterally. Antegrade flow is seen in codominant vertebral arteries. IMPRESSION: No significant flow abnormality of the neck vessels. MRA Brain: COMPARISON: Head Brain Wo Cont dated 09/04/2018 FINDINGS: 3D noncontrast hvuh-wj-bgnzwz MR angiography of the [place] was performed. No aneurysm, flow-limiting stenosis or vascular malformation is seen. origins of both posterior communicating artery is noted, normal variant. Forward flow seen in codominant vertebral arteries. The visualized dural venous sinuses appear patent. IMPRESSION: No significant flow abnormality of the [place] is identified. Carotid doppler: COMPARISON: No comparisons TECHNIQUE: Real-time sonographic evaluation of both carotid systems was performed. Doppler interrogation was performed with waveform tracing bilaterally. FINDINGS: Normal high resistance waveforms are noted in both external carotid arteries. The common carotid arteries and internal carotid arteries show normal low resistance waveforms. Mild hard plaquing is seen in both proximal ICAs. Peak systolic and end diastolic velocity values and the ICA/CCA ratios are in the non-hemodynamically significant range. Antegrade flow seen in both vertebral arteries. IMPRESSION: Mild hard plaquing seen in both proximal ICAs. No evidence of a hemodynamically significant stenosis. ECHO: Obtain, results pending at discharge Medical Problem List: Syncope likely orthostatic hypotension related to medication and dehydration Hyponatremia likely from dehydration Hypertension Hypothyroidism GERD with hiatal hernia History of irritable bowel, chronic diarrhea Brief History of Present Illness: 83-year-old female presented to the emergency room after syncopal episode. This occurred today while playing cards with friends. She start to have some flashes to her vision. Then she had this syncopal episode. It lasted about 2- 3 min. When EMS arrived her blood pressure was 54/39. This was recheck and improved. By the time she arrived to the emergency room, blood pressure was stable and back to within normal range. Patient with history of hypertension, hypothyroidism, GERD with hiatal hernia. Patient takes diltiazem for 240 mg and Olmesartan 40 mg daily. She reports getting a new medication from the pharmacy for her blood pressure medication-olmesartan. No other changes in her medications have been noted. She has no prior history of TIA or CVA. Patient denied any chest pain, shortness of breath, nausea, vomiting. In the ER patient evaluated. CBC unremarkable. Sodium 129, potassium 3.9, GFR 58. Urinalysis unremarkable. Troponin negative. Chest x-ray unremarkable CT of the head was pending. Patient was admitted for further evaluation. When I saw the patient ER, she appeared comfortable. Family was at bedside. Hospital Course: Patient presented with syncope that resolved quickly. Patient with history of optical migraine. When initially evaluated by EMS blood pressure was low. This returned back to normal. By the time she arrived to the ER symptoms have resolved. Patient was further assessed. CT scan of head unremarkable. Patient found to have hyponatremia and mild dehydration. Patient with history of chronic diarrhea/IBS, hypertension, hypothyroidism and GERD with hiatal hernia. Patient was admitted for further evaluation. No further symptoms reported. One episode of premature atrial contraction noted but patient asymptomatic. MRI brain, MRA brain, MRA neck unremarkable. LDL unremarkable. Cardiac enzymes unremarkable. Tsh within normal range. Patient received IV fluids with improvement of hyponatremia. Medications have been adjusted. Case discussed with Neurology. At discharge patient will continue with aspirin 81 mg daily. Will recommend to discontinue Olmesartan due to likely orthostatic hypotension and side effect of chronic diarrhea. At discharge patient may continue with diltiazem 240 mg daily. Recommend to maintain blood pressures less 150/80. Will recommend not to have her blood pressure strictly controlled. She is to keep a log of her blood pressure and follow up with her PCP. This can be further addressed and monitored by her PCP. Diltiazem may be able to be increased if blood pressure remains elevated. Patient may follow up with neurology in 1-2 weeks to follow up this hospitalization and to establish care. Will recommend that she follow up with cardiology to further evaluate as the patient may require Holter monitor and possible further cardiac workup. Recommend to recheck lab-BMP in 1 week to follow up this hospitalization. Fall precautions to be provided. Patient with hypothyroidism. Patient may continue with her medication- levothyroxine 50 mcg daily. Patient with history of GERD and hiatal hernia along with irritable bowel/ chronic diarrhea. Medications have been adjusted. Patient may continue with Pepcid 20 mg 1 pill twice daily. Lifestyle modification education will be provided. Will recommend to discontinue Olmesartan as this may have potential side effects of chronic diarrhea. Will also further recommend to discontinue meloxicam as this may increase symptoms of GERD and risk for GI bleed. This can be further readdressed by her PCP and GI. Follow up the GI is recommended. Vital Signs/Physical Exam: Temp Pulse Resp BP Pulse Ox 98.0 F 75 18 139/69 94 09/05/18 08:00 09/05/18 09:41 09/05/18 08:00 09/05/18 09:41 09/05/18 08:00 General: Alert, In no apparent distress, Oriented x3, Cooperative HEENT: Atraumatic Neck: Supple Respiratory: Clear to auscultation bilaterally, Normal air movement Cardiovascular: Normal pulses, Regular rate/rhythm Gastrointestinal: Normal bowel sounds, Soft and benign, Non-distended, No tenderness, No masses, No rebound, No guarding Musculoskeletal: No erythema, No tenderness, No warmth Integumentary: No tenderness/swelling, No erythema, No warmth, No cyanosis Neurological: Normal speech, Normal strength at 5/5 x4 extr, Normal tone, Normal affect Laboratory Data at Discharge: WBC 4.8 K/uL (4.3-10.9) D 09/05/18 06:00 Hgb 13.3 g/dL (12.0-15.0) 09/05/18 06:00 Hct 38.3 % (36.0-45.0) 09/05/18 06:00 Plt Count 290 K/uL (152-406) 09/05/18 06:00 PT 10.8 SECONDS (9.5-12.5) 09/04/18 14:35 INR 0.91 09/04/18 14:35 Sodium 137 mmol/L (136-145) 09/05/18 06:00 Potassium 4.2 mmol/L (3.5-5.1) 09/05/18 06:00 BUN 7 mg/dL (7-18) 09/05/18 06:00 Creatinine 0.63 mg/dL (0.55-1.3) 09/05/18 06:00 Glucose 84 mg/dL (74-106) 09/05/18 06:00 Magnesium 2.4 mg/dL (1.8-2.4) 09/05/18 06:00 Total Bilirubin 0.5 mg/dL (0.2-1.0) 09/04/18 14:35 AST 28 U/L (15-37) 09/04/18 14:35 ALT 23 U/L (12-78) 09/04/18 14:35 Alkaline Phosphatase 100 U/L (45-117) 09/04/18 14:35 Troponin I < 0.02 ng/mL (0.0-0.045) 09/05/18 06:00 Triglycerides 87 mg/dL (<150) 09/05/18 06:00 Cholesterol 191 mg/dL (<200) 09/05/18 06:00 HDL Cholesterol 110 mg/dL (40-60) H 09/05/18 06:00 Cholesterol/HDL Ratio 1.74 09/05/18 06:00 Home Medications: Diltiazem HCl [Cartia Xt] 240 mg PO DAILY 09/04/18 Levothyroxine Sodium 50 mcg PO [id number] 09/04/18 Aspirin [Aspirin EC 81 MG] 81 mg PO DAILY #30 tablet. 09/05/18 Famotidine [Pepcid*] 20 mg PO BEDTIME PRN #60 tab 09/05/18 New Medications: Aspirin [Aspirin EC 81 MG] 81 mg PO DAILY #30 tablet. Famotidine [Pepcid*] 20 mg PO BEDTIME PRN #60 tab PRN Reason: GERD Patient Discharge Instructions: 1. Recommend a follow up with her PCP in 1 week to follow up this hospitalization. 2. Patient presented with syncope that resolved quickly. Patient with history of optical migraine. When initially evaluated by EMS blood pressure was low. This returned back to normal. By the time she arrived to the ER symptoms have resolved. Patient was further assessed. CT scan of head unremarkable. Patient found to have hyponatremia and mild dehydration. Patient with history of chronic diarrhea/IBS , hypertension, hypothyroidism and GERD with hiatal hernia. Patient was admitted for further evaluation. No further symptoms reported. One episode of premature atrial contraction noted but patient asymptomatic. MRI brain, MRA brain, MRA neck unremarkable. Patient received IV fluids with improvement of hyponatremia. Medications have been adjusted. Case discussed with Neurology. At discharge patient will continue with aspirin 81 mg daily. Will recommend to discontinue Olmesartan due to likely orthostatic hypotension and side effect of chronic diarrhea. At discharge patient may continue with diltiazem 240 mg daily. Recommend to maintain blood pressures less 150/80. Will recommend not to have her blood pressure strictly controlled. She is to keep a log of her blood pressure and follow up with her PCP. This can be further addressed and monitored by her PCP. Diltiazem may be able to be increased if blood pressure remains elevated. Patient may follow up with neurology in 1-2 weeks to follow up this hospitalization and to establish care. Will recommend that she follow up with cardiology to further evaluate as the patient may require Holter monitor and possible further cardiac workup. Recommend to recheck lab-BMP in 1 week to follow up this hospitalization. Fall precautions to be provided. 3. Patient with hypothyroidism. Patient may continue with her medication- levothyroxine 50 mcg daily. 4. Patient with history of GERD and hiatal hernia along with irritable bowel/chronic diarrhea. Medications have been adjusted. Patient may continue with Pepcid 20 mg 1 pill twice daily. Lifestyle modification education will be provided. Will recommend to discontinue Olmesartan as this may have potential side effects of chronic diarrhea. Will also further recommend to discontinue meloxicam as this may increase symptoms of GERD and risk for GI bleed. This can be further readdressed by her PCP and GI. Follow up the GI is recommended. Diet: AHA Activity: Fall precautions Time spent managing pt's care (in minutes): 55
[2018-09-05 13:29] VITALS: BP 144/66; TEMP 97.2
--- NOTE | 2018-09-05 15:51 | ECHO ---
HEIGHT: 5 ft 4 in WEIGHT: 195 lb 8 oz DATE OF STUDY: 09/05/[address]: Fredis Lockhart DO 2-DIMENSIONAL: YES M.MODE: YES DOPPLER: YES COLOR FLOW: YES TDS: NO PORTABLE: NO DEFINITY: NO BUBBLE STUDY: NO DIAGNOSIS: SYNCOPE CARDIAC HISTORY: CATHERIZATION: NO SURGERY: NO PROSTHETIC VALVE: NO PACEMAKER: NO MEASUREMENTS (cm) DIASTOLIC (NORMALS) SYSTOLIC (NORMALS) IVSd 1.0 (0.6-1.2) LA Diam 3.9 (1.9-4.0) LVEF 59% LVIDd 4.7 (3.5-5.7) LVIDs 3.2 (2.0-3.5) %FS 31% LVPWd 1.2 (0.6-1.2) Ao Diam 3.0 (2.0-3.7) 2 DIMENSIONAL ASSESSMENT: RIGHT ATRIUM: NORMAL LEFT ATRIUM: NORMAL RIGHT VENTRICLE: NORMAL LEFT VENTRICLE: NORMAL TRICUSPID VALVE: NORMAL MITRAL VALVE: NORMAL PULMONIC VALVE: NORMAL AORTIC VALVE: NORMAL PERICARDIAL EFFUSION: NONE AORTIC ROOT: NORMAL LEFT VENTRICULAR WALL MOTION: NORMAL DOPPLER/COLOR FLOW: MILD MITRAL REGURGITATION. MILD TRICUSPID REGURGITATION. NORMAL RIGHT VENTRICULAR SYSTOLIC PRESSURE. COMMENTS: NORMAL 2D ECHO. MILD MITRAL AND TRICUSPID REGURGITATION. TECHNOLOGIST: CHARLES PHELPS
== END 2018-09-05 14:18 | disposition home or self-care (01) ==
LOC: ER 14:13 → ERHOLD 17:35 → 4TH 19:47
PROVIDERS: ADMIT Family Medicine; ATTEND Family Medicine
DX: E87.1 Hypo-osmolality and hyponatremia (principal); E86.0 Dehydration; R55 Syncope and collapse; E03.9 Hypothyroidism, unspecified; I08.1 Rheumatic disorders of both mitral and tricuspid valves; I65.23 Occlusion and stenosis of bilateral carotid arteries; I10 Essential (primary) hypertension; K21.9 Gastro-esophageal reflux disease without esophagitis; K44.9 Diaphragmatic hernia without obstruction or gangrene; K58.0 Irritable bowel syndrome with diarrhea; I49.1 Atrial premature depolarization; M19.90 Unspecified osteoarthritis, unspecified site; Z79.82 Long term (current) use of aspirin; Z79.899 Other long term (current) drug therapy
CPT/HCPCS: 93005; 93306; 87088; 85025 ×2; 87086; 80048 ×2; 36415; 83735 ×2; 82550 ×2; 85610; 80061; 80076; 84443; 84484 ×3; 82553 ×2; 84439; 83880; 70450; 71045; 93880; 70553; 70544; 70549; 97163; 96360; 99285; A9577; J1650; J7030 ×2; G0378 ×3; 81003; 81015

== ENCOUNTER 2019-08-26 20:31 | Emergency (ER) | payer OTHER, MEDICARE ==
--- OUTSIDE RECORDS SUMMARY | 2019-08-26 20:33 | XMS REPORT | Clinical Summary ---
:1935 Author Organization [facility] Address [address] [place] [address] Care Team Providers Name Role Phone Tram Medley MD Primary Care Provider Allergies Active Allergy Reactions Severity Noted Date Comments Rqa-Cjckmhfwnowqg-Lqcl-Buffers Other (See Comments) Causes asthma Hydrochlorothiazide GI Intolerance Triamterene GI Intolerance Medications Medication Sig Dispensed Refills Start Date End Date Status levothyroxine levothyroxine 50 mcg 0 01/24/2015 Active (SYNTHROID, LEVOXYL) tablet 50 mcg tablet omeprazole TK 1 C PO QD IN THE 3 05/15/2018 Active (PriLOSEC) 20 MG MORNING capsule diltiazem CD (CARTIA Cartia XT 240 mg 0 04/12/2015 Active XT) 240 MG 24 hr capsule,extended capsule release olmesartan (BENICAR) TK 1 T PO QD 3 05/22/2018 Active 40 MG tablet famotidine (PEPCID) TK 1 T PO QD HS 2 05/15/2018 Active 20 MG tablet CALCIUM ORAL Take by mouth. 0 Ac tive mvi, adult with vit Infuse into a venous 0 Active K (multiple vitamin) catheter. 3,300 unit- 150 mcg/10 mL injection psyllium husk Take by mouth. 0 A ctive (METAMUCIL ORAL) multivitamin with Take by mouth. 0 Active minerals (HAIR,SKIN AND NAILS ORAL) naproxen (NAPROSYN) Take by mouth 2 0 Active 125 mg/5 mL (two) times a day. suspension Active Problems Problem Noted Date Carpal tunnel syndrome of left wrist 07/21/2018 Overview: Added automatically from request for tanja nicole [id number] Family History Medical History Relation Name Comments [...] travel history available. Last Filed Vital Signs Not on file Plan of Treatment Health Maintenance Due Date Last Done Comments SHINGLES VACCINES (#1) 1985 INFLUENZA VACCINE 11/21/2019 01/20/2015 65+ PNEUMOCOCCAL VACCINE Completed 11/06/2016, 03/30/2014 Results Not on fileafter 08/25/2018 Insurance Payer Benefit Plan / Subscriber ID Effective Dates Phone Addre ss Type Group MEDICARE MEDICARE PART A xxxxxxxxxxx 2000-[place], [place] Medicare AND B t AARP AARP SUPPLEMENT xxxxxxxxxxx 2017-Present Commercial Advance Directives For more information, please contact: [phone] Type Date Recorded Patient Manager Icu Explanati on Advance Directives, Living Will 07/24/2018 1:07 PM and Medical Power of Online Merchant
[2019-08-26] MEDS ORDERED: TRAMADOL HCL 50 MG TAB ONE (20:57)
[2019-08-26 21:16] LABS: Basophils % 0.7 % (0-1.3); Hematocrit 34.2 % (36.0-45.0); Lymphocytes % 13.8 % (15.3-44.8); MPV 7.2 fL (7.6-11.3); RBC Red Blood Cell Count 3.83 M/uL (3.86-4.86)
[2019-08-26 21:29] LABS: BUN Blood Urea Nitrogen 7 mg/dL (7-18); Bicarbonate 24 mmol/L (21-32); Glucose Level 103 mg/dL (74-106); Potassium 3.9 mmol/L (3.5-5.1); Sodium Level 127 mmol/L (136-145)
[2019-08-26] MEDS ORDERED: MORPHINE 2 MG/ML SYR ONE (22:35)
[2019-08-26] MEDS ORDERED: dexAMETHasone 10 MG/ML VIAL ONE (23:14)
[2019-08-27] MEDS ORDERED: MORPHINE 2 MG/ML SYR ONE (00:37)
--- NOTE | 2019-08-27 10:31 | EDPHYS ---
Physician Documentation [facility] Name: Anita Hernadze Age: 84 yrs Sex: Female : 1935 Arrival Date: 08/26/2019 Time: 20:37 Bed 7 Private MD: ED Physician Jerrod Mayen HPI: 08/25 20:57 This 84 yrs old Female presents to ER via EMS with complaints of shoulder rn pain. 20:57 The patient or guardian complains of pain, that is acute. rn 20:57 left shoulder. Onset: The symptoms/episode began/occurred a few days ago. Modifying rn factors: the symptoms are alleviated by remaining still, The symptoms are aggravated by rotation of arm. Severity of symptoms: At their worst the symptoms were moderate, in the emergency department the symptoms are unchanged. The patient has experienced a previous episode. Reports started about 1 week ago with pain in left great toe, attributed it to gout, got better, now having left shoulder pain that radiates downward. No chest pain/sob. Hurts to touch shoulder and rotate. Reports for last few weeks has been having to use a cane with her left arm, normally uses walker but space is cramped lately and needs to use cane. Similar symptoms in past but in right shoulder, reports was tendinitis and this feels similar. No hx of joint infections. . Historical: - Allergies: 20:52 Aspirin; jd3 20:52 Mucinex; jd3 20:52 Zyrtec; jd3 - Home Meds: 20:52 naproxen as needed [Active]; calcium [Active]; levothyroxine 50 mcg tab 1 tab once jd3 daily [Active]; multivitamin Oral [Active]; omeprazole 20 mg Oral cpDR 1 cap once daily [Active]; Cartia XT Oral [Active]; Xarelto oral oral [Active]; carvedilol oral oral [Active]; mesalamine oral oral [Active]; - PMHx: 20:52 Arthritis; GERD; Diverticulitis; Hypertension; Hypothyroidism; jd3 - PSHx: 20:52 left breast; right rotator cuff; jd3 - Immunization history:: Adult Immunizations up to date. - Social history:: Smoking status: Patient denies any tobacco usage or history of. - Family history:: not pertinent. - Hospitalizations: : No recent hospitalization is reported. ROS: 20:57 Constitutional: Negative for fever, chills, and weight loss, Eyes: Negative for injury, rn pain, redness, and discharge, Neck: Negative for injury, pain, and swelling, Cardiovascular: Negative for chest pain, palpitations, and edema, Respiratory: Negative for shortness of breath, cough, wheezing, and pleuritic chest pain, Abdomen/GI: Negative for abdominal pain, nausea, vomiting, diarrhea, and constipation, MS/Extremity: + left shoulder pain Skin: Negative for injury, rash, and discoloration, Neuro: Negative for headache, weakness, numbness, tingling, and seizure. Exam: 20:57 Constitutional: This is a well developed, well nourished patient who is awake, alert, rn and in no acute distress. Head/Face: Normocephalic, atraumatic. Neck: Trachea midline, Supple, full range of motion without nuchal rigidity, or vertebral point tenderness. No Meningismus. Cardiovascular: Regular rate and rhythm. No pulse deficits. Respiratory: No increased work of breathing, no retractions or nasal flaring. Abdomen/GI: soft, non-tender MS/ Extremity: Pulses equal, no cyanosis. Painful ROM and painful superficially over anterior/posterio tendons, no gross bony tenderness. No warmth or redness. Neuro: Awake and alert, GCS 15, oriented to person, place, time, and situation. Cranial nerves II-XII grossly intact. Motor strength 5/5 in all extremities. Sensory grossly intact. Vital Signs: 20:48 BP 129 / 68; Pulse 78; Resp 17 S; Temp 98.7(O); Pulse Ox 99% on R/A; Weight 83.91 kg jd3 (R); Height 5 ft. 4 in. (162.56 cm) (R); Pain 9/10; 22:10 BP 134 / 59; Pulse 70; Resp 16; Pulse Ox 95% ; Pain 9/10; rr5 23:20 BP 139 / 69; Pulse 87; Resp 17; Pulse Ox 99% ; rr5 08/26 00:35 BP 131 / 75; Pulse 80; Resp 19; Pulse Ox 99% on R/A; rr5 08/25 20:48 Body Mass Index 31.75 (83.91 kg, 162.56 cm) jd3 MDM: 08/25 20:40 Patient medically screened. rn 23:01 Differential diagnosis: DJD, tendonitis. Data reviewed: vital signs, nurses notes, crown and bridge dental lab technician test result(s), EKG, radiologic studies, plain films. Test interpretation: by ED physician or midlevel provider: ECG, plain radiologic studies, Xray left shoulder neg for acute fracture/dislocation. Counseling: I had a detailed discussion with the patient and/or guardian regarding: the historical points, exam findings, and any diagnostic results supporting the discharge/admit diagnosis, lab results, radiology results, the need for outpatient follow up, to return to the emergency department if symptoms worsen or persist or if there are any questions or concerns that arise at home. Response to treatment: the patient's symptoms have mildly improved after treatment, and as a result, I will discharge patient. 23:16 ED course: Normal ECG, normal WBC, neg procalcitonin, xray shows degenerative changes. rn Will dc home with steroids and pain medication. No skin changes to suggest infection. . 08/26 00:14 Special discussion: I discussed with the patient/guardian in detail that at this point rn there is no indication for admission to the hospital. It is understood, however, that if the symptoms persist or worsen the patient needs to return immediately for re-evaluation. Further emergent ED testing is not indicated at this point in time. I discussed with the patient/guardian in detail the need to arrange with the PCP or specialist further outpatient testing, MRI, Based on the history and exam findings, there is no indication for further emergent testing or inpatient evaluation. I discussed with the patient/guardian the need to see the primary care provider for further evaluation of the symptoms. 08/25 20:40 Order name: IV Start; Complete Time: 21:09 rn 08/25 21:00 Order name: EKG - Nurse/Tech; Complete Time: 21:25 rn 08/25 23:01 Order name: Sling; Complete Time: 00:20 rn Administered Medications: 08/25 21:09 Drug: traMADol 50 mg {Note: rass 0.} Route: PO; rr5 22:10 Follow up: Response: No adverse reaction; Pain is unchanged, physician notified rr5 22:10 Follow up: Response: RASS: Alert and Calm (0) rr5 22:33 Drug: morphine 2 mg {Note: rass 0.} Route: IVP; Site: right forearm; rr5 23:30 Follow up: Response: No adverse reaction; RASS: Alert and Calm (0) rr5 23:20 Drug: Decadron - Dexamethasone 10 mg Route: IVP; Site: right forearm; rr5 08/26 00:20 Follow up: Response: No adverse reaction rr5 00:20 Drug: morphine 2 mg {Note: rass 0.} Route: IVP; Site: right forearm; rr5 00:45 Follow up: Response: No adverse reaction; RASS: Alert and Calm (0) rr5 Disposition: 08/27/19 00:15 Discharged to Home. Impression: Calcific tendinitis of left shoulder, Primary osteoarthritis, left shoulder. - Condition is Stable. - Discharge Instructions: Arthritis, Rotator Cuff Tendinitis, Shoulder Pain, Tendinitis, How to Use a Sling. - Prescriptions for Tramadol 50 mg Oral Tablet - take 1 tablet by ORAL route every 8 hours as needed; 15 tablet. Medrol (Reyes) 4 mg Oral Tablets, Dose Pack - take 1 tablet by ORAL route as directed - follow package instructions; 1 packet. - Medication Reconciliation Form, Thank You Letter, Antibiotic Education, Prescription Opioid Use form. - Follow up: Randall Caraballo MD; When: As needed; Reason: Recheck today's complaints, Re-evaluation by your physician. - Problem is an ongoing problem. - Symptoms have improved. Signatures: Norman Simon RN RN sg Jerrod Mayen MD MD rn Davies, Jonathon, RN RN jd3 Alcides Allan RN RN rr5 Corrections: (The following items were deleted from the chart) 08/25 21:01 20:57 Constitutional: This is a well developed, well nourished patient who is awake, rn alert, and in no acute distress. Head/Face: Normocephalic, atraumatic. Neck: Trachea midline, Supple, full range of motion without nuchal rigidity, or vertebral point tenderness. No Meningismus. Cardiovascular: Regular rate and rhythm. No pulse deficits. Respiratory: No increased work of breathing, no retractions or nasal flaring. Abdomen/GI: soft, non-tender MS/ Extremity: Pulses equal, no cyanosis. Painful ROM and painful superficially over anterior/posterio tendons, no gross bony tenderness. No warmth or redness. rn 08/26 00:43 00:15 08/27/2019 00:15 Discharged to Home. Impression: Calcific tendinitis of left sg shoulder; Primary osteoarthritis, left shoulder. Condition is Stable. Discharge Instructions: Arthritis, Rotator Cuff Tendinitis, Shoulder Pain, Tendinitis, How to Use a Sling. Prescriptions for Tramadol 50 mg Oral Tablet - take 1 tablet by ORAL route every 8 hours as needed; 15 tablet, Medrol (Reyes) 4 mg Oral Tablets, Dose Pack - take 1 tablet by ORAL route as directed - follow package instructions; 1 packet. and Forms are Medication Reconciliation Form, Thank You Letter, Antibiotic Education, Prescription Opioid Use. Follow up: Dr. Radnall Caraballo; When: As needed; Reason: Recheck today's complaints, Re-evaluation by your physician. Problem is an ongoing problem. Symptoms have improved. rn 00:51 00:43 08/27/2019 00:15 Discharged to Home. Impression: Calcific tendinitis of left rr5 shoulder; Primary osteoarthritis, left shoulder. Condition is Stable. Discharge Instructions: Arthritis, Rotator Cuff Tendinitis, Shoulder Pain, Tendinitis, How to Use a Sling. Prescriptions for Tramadol 50 mg Oral Tablet - take 1 tablet by ORAL route every 8 hours as needed; 15 tablet, Medrol (Reyes) 4 mg Oral Tablets, Dose Pack - take 1 tablet by ORAL route as directed - follow package instructions; 1 packet. and Forms are Medication Reconciliation Form, Thank You Letter, Antibiotic Education, Prescription Opioid Use. Follow up: Dr. Randall Caraballo; When: As needed; Reason: Recheck today's complaints, Re-evaluation by your physician. Problem is an ongoing problem. Symptoms have improved. sg
--- NOTE | 2019-08-27 10:32 | ER ---
Nurse's Notes [facility] Name: Anita Hernadez Age: 84 yrs Sex: Female : 1935 Arrival Date: 08/26/2019 Time: 20:37 Bed 7 Private MD: Diagnosis: Calcific tendinitis of left shoulder;Primary osteoarthritis, left shoulder Presentation: 08/25 20:46 Chief complaint: EMS states: "The pt is reporting left arm pain that radiates down and jd3 up into the shoulder. she denies chest pain or shortness of breath. she reports a history of gout, but has never been diagnosed with it.". Coronavirus screen: Proceed with normal triage. Ebola Screen: Patient negative for fever greater than or equal to 101.5 degrees Fahrenheit, and additional compatible Ebola Virus Disease symptoms. Initial Sepsis Screen: Does the patient meet any 2 criteria? No. Patient's initial sepsis screen is negative. Does the patient have a suspected source of infection? No. Patient's initial sepsis screen is negative. Risk Assessment: Do you want to hurt yourself or someone else? Patient reports no desire to harm self or others. Onset of symptoms was August 26, 2019. Transition of care: patient was received from another setting of care (long-term care facility), [facility]. 20:46 Method Of Arrival: EMS: [facility] jd3 20:46 Acuity: THERON 3 jd3 Historical: - Allergies: 20:52 Aspirin; jd3 20:52 Mucinex; jd3 20:52 Zyrtec; jd3 - Home Meds: 20:52 naproxen as needed [Active]; calcium [Active]; levothyroxine 50 mcg tab 1 tab once jd3 daily [Active]; multivitamin Oral [Active]; omeprazole 20 mg Oral cpDR 1 cap once daily [Active]; Cartia XT Oral [Active]; Xarelto oral oral [Active]; carvedilol oral oral [Active]; mesalamine oral oral [Active]; - PMHx: 20:52 Arthritis; GERD; Diverticulitis; Hypertension; Hypothyroidism; jd3 - PSHx: 20:52 left breast; right rotator cuff; jd3 - Immunization history:: Adult Immunizations up to date. - Social history:: Smoking status: Patient denies any tobacco usage or history of. - Family history:: not pertinent. - Hospitalizations: : No recent hospitalization is reported. Screenin:09 Abuse screen: Denies threats or abuse. Denies injuries from another. Nutritional rr5 screening: No deficits noted. Tuberculosis screening: No symptoms or risk factors identified. Fall Risk IV access (20 points). Total Fisher Fall Scale indicates No Risk (0-24 pts). Assessment: 21:00 General: Appears in no apparent distress. uncomfortable, Behavior is calm, cooperative, rr5 appropriate for age. Pain: Complains of pain in left arm Pain radiates to left shoulder Pain currently is 9 out of 10 on a pain scale. Quality of pain is described as aching, Pain began gradually, Is intermittent. Neuro: Level of Consciousness is awake, alert, obeys commands, Oriented to person, place, time, situation, Appropriate for age. Cardiovascular: Denies chest pain, Capillary refill < 3 seconds Patient's skin is warm and dry. Respiratory: Airway is patent Respiratory effort is even, unlabored, Respiratory pattern is regular, symmetrical, Denies shortness of breath. GI: No signs and/or symptoms were reported involving the gastrointestinal system. : No signs and/or symptoms were reported regarding the genitourinary system. EENT: No signs and/or symptoms were reported regarding the EENT system. Derm: Skin is intact, is healthy with good turgor, Skin temperature is warm. Musculoskeletal: Capillary refill < 3 seconds, Range of motion: limited in left arm Reports pain in left arm Pain is 9 out of 10 on a pain scale. 22:10 Reassessment: Patient appears in no apparent distress at this time. Patient is alert, rr5 oriented x 3, equal unlabored respirations, skin warm/dry/pink. ED provider aware with order made and carried out. Patient states symptoms have not improved. 23:20 Reassessment: Patient appears in no apparent distress at this time. Patient is alert, rr5 oriented x 3, equal unlabored respirations, skin warm/dry/pink. reassess by the ED provider, patient agreed for the plan of care. 08/26 00:35 Reassessment: Patient appears in no apparent distress at this time. Patient is alert, rr5 oriented x 3, equal unlabored respirations, skin warm/dry/pink. discharge instruction given and explained without complaints made. Vital Signs: 08/25 20:48 BP 129 / 68; Pulse 78; Resp 17 S; Temp 98.7(O); Pulse Ox 99% on R/A; Weight 83.91 kg jd3 (R); Height 5 ft. 4 in. (162.56 cm) (R); Pain 9/10; 22:10 BP 134 / 59; Pulse 70; Resp 16; Pulse Ox 95% ; Pain 9/10; rr5 23:20 BP 139 / 69; Pulse 87; Resp 17; Pulse Ox 99% ; rr5 08/26 00:35 BP 131 / 75; Pulse 80; Resp 19; Pulse Ox 99% on R/A; rr5 08/25 20:48 Body Mass Index 31.75 (83.91 kg, 162.56 cm) jd3 ED Course: 08/25 20:37 Patient arrived in ED. ds1 20:40 Jerrod Mayen MD is Attending Physician. rn 20:47 Alcides Allan RN is Primary Nurse. rr5 20:48 Triage completed. jd3 20:48 Arm band placed on. jd3 21:00 Inserted saline lock: 20 gauge in right forearm, using aseptic technique. Blood rr5 collected. 21:09 Patient has correct armband on for positive identification. Placed in gown. Bed in low rr5 position. Call light in reach. Side rails up X2. monitor worker on. Pulse ox on. NIBP on. 21:25 EKG done, by ED staff, reviewed by Jerrod Mayen MD. rr5 08/26 00:14 Randall Caraballo MD is Referral Physician. rn 00:20 Shoulder immobilizer applied on left shoulder. rr5 00:40 No provider procedures requiring assistance completed. IV discontinued, intact, rr5 bleeding controlled, No redness/swelling at site. Pressure dressing applied. Administered Medications: 08/25 21:09 Drug: traMADol 50 mg {Note: rass 0.} Route: PO; rr5 22:10 Follow up: Response: No adverse reaction; Pain is unchanged, physician notified rr5 22:10 Follow up: Response: RASS: Alert and Calm (0) rr5 22:33 Drug: morphine 2 mg {Note: rass 0.} Route: IVP; Site: right forearm; rr5 23:30 Follow up: Response: No adverse reaction; RASS: Alert and Calm (0) rr5 23:20 Drug: Decadron - Dexamethasone 10 mg Route: IVP; Site: right forearm; rr5 08/26 00:20 Follow up: Response: No adverse reaction rr5 00:20 Drug: morphine 2 mg {Note: rass 0.} Route: IVP; Site: right forearm; rr5 00:45 Follow up: Response: No adverse reaction; RASS: Alert and Calm (0) rr5 Outcome: 00:15 Discharge ordered by . rn 00:40 Discharged to longterm. accompanied by daughter in law rr5 00:40 Condition: stable 00:40 Discharge instructions given to patient, Instructed on discharge instructions, follow up and referral plans. medication usage, Demonstrated understanding of instructions, follow-up care, medications, Prescriptions given X 2. 00:43 Patient left the ED. sg 00:51 Patient left the ED. rr5 Signatures: Norman Simon RN RN sg Bijal Singh ds1 Jerrod Mayen MD MD rn Davies, Jonathon, RN RN jd3 Roque, Raymond RN RN rr5
--- NOTE | 2019-08-27 13:00 | EKG ---
Test Date: 2019-08-26 Test Time: 21:22:38 Fleet Technician: RR MEASUREMENT RESULTS: Intervals: Rate: 75 AR: 162 QRSD: 88 QT: 384 QTc: 428 [place]: P: 62 AR: 162 QRS: 39 T: 59 INTERPRETIVE STATEMENTS: Normal sinus rhythm Normal ECG Compared to ECG 09/04/2018 14:28:43 No significant changes Electronically Signed On 08-27-19 12:58:21 CDT by Brian Marvin
--- NOTE | 2019-08-27 13:20 | RAD REPORT ---
EXAM DESCRIPTION: RAD - Shoulder Left 2 View - 08/26/2019 10:07 pm CLINICAL HISTORY: The patient is 84 years old and is Female; Pain, fall TECHNIQUE: Two or more views of the left shoulder. COMPARISON: No relevant prior studies available. FINDINGS: BONES/JOINTS: The bones are osteopenic. Acromioclavicular and glenohumeral joint space narrowing is present. No acute fracture. No dislocation. SOFT TISSUES: Unremarkable. LUNGS: The visualized lung is clear. IMPRESSION: No acute findings in the left shoulder. Electronically signed by: Cherrie Grant MD 08/26/2019 10:37 PM CDT Due to temporary technical issues with the PACS/Fluency reporting system, reports are being signed by the in house radiologist as a courtesy to ensure prompt reporting. The interpreting radiologist is f ully responsible for the content of the report.
[2019-08-27 22:55] VITALS: TEMP 98.7
[2019-08-27 22:58] VITALS: O2SAT 99
[2019-08-27 22:59] VITALS: BP 131/75
== END 2019-08-27 00:51 | disposition home or self-care (01) ==
LOC: ER 20:31
DX: M75.32 Calcific tendinitis of left shoulder (principal); M19.012 Primary osteoarthritis, left shoulder; I10 Essential (primary) hypertension; E03.9 Hypothyroidism, unspecified; Z79.01 Long term (current) use of anticoagulants; Z88.6 Allergy status to analgesic agent; Z88.8 Allergy status to other drugs, medicaments and biological substances
CPT/HCPCS: 93005; 85025; 80048; 36415; 84550; 84145; 73030; 96375; 96374; 99285; J1100; J2270 ×2

== ENCOUNTER 2020-02-04 15:48 | Emergency (ER) | payer OTHER, MEDICARE ==
--- OUTSIDE RECORDS SUMMARY | 2020-02-04 15:50 | XMS REPORT | Clinical Summary ---
:1935 Author Organization [facility] Address [address] [place] [address] Care Team Providers Name Role Phone Tram Medley MD Primary Care Provider Allergies Active Allergy Reactions Severity Noted Date Comments Esg-Cxszwxwsgpgdu-Yuro-Buffers Other (See Comments) Causes asthma Hydrochlorothiazide GI [...] Added automatically from request for tanja nicole [id number] Surgical History Surgery Date Site/Laterality Comments APPENDECTOMY BREAST SURGERY Left lumpectomy SHOULDER ARTHROSCOPY Right EYE SURGERY Bilateral cataracts CARPAL TUNNEL RELEASE, 07/25/2018 Wrist/Left Procedure : Left endoscopic ENDOSCOPIC carpal tunnel re lease; Surgeon: Maged Hernadez MD; Location: [facility] Main OR; Service: Orthope dics; Laterality: Left ; Medical History Medical History Date Comments Arthritis Cancer (HCC) 2010 Had lumpectomy GERD (gastroesophageal reflux disease) .? Hypertension Asthma Hiatal hernia Hypothyroidism Ocular migraine Dental bridge present Exercise tolerance finding can walk 1/2 block with cane before she needs to rest Family History Medical History Relation Name Comments Alcohol abuse Father Hypertension Mother Stroke Mother Relation Name Status Comments Father Mother Social History Tobacco Use Types Packs/Day Years Used Date Never Smoker Smokeless Tobacco: Never Used Alcohol Use Drinks/Week oz/Week Comments Yes 7 Glasses of wine Sex Assigned at Date Recorded Not on file Last Filed Vital Signs Not on file Plan of Treatment Health Maintenance Due Date Last Done Comments SHINGLES VACCINES (#1) 1985 INFLUENZA VACCINE 11/21/2019 01/20/2015 65+ PNEUMOCOCCAL VACCINE Completed 11/06/2016, 03/30/2014 Results Not on fileafter 02/03/2019 Insurance Payer Benefit Plan / Subscriber ID Effective Dates Phone Addre ss Type Group MEDICARE MEDICARE PART A [id number] 2000-Jen [place], [place] Medicare AND B t AARP AARP SUPPLEMENT [id number] 2017-Present Commercial Advance Directives For more information, please contact: [phone] Type Date Recorded Patient Customer Service Voice Explanati on Advance Directives, Living Will 07/24/2018 1:07 PM and Medical Power of Uniform Attendant
[2020-02-04] MEDS ORDERED: HYDROCODONE/APAP 5/325 MG TAB ONE (16:23)
--- NOTE | 2020-02-04 17:02 | RAD REPORT ---
EXAM DESCRIPTION: RAD - Ankle Left 3 View - 02/04/2020 4:39 pm CLINICAL HISTORY: ankle swelling COMPARISON: No comparisons FINDINGS: Bones are diffusely osteopenic. A midshaft fibula fracture is present approximately 12 cm above the level of the ankle joint. At the ankle joint there is no acute fracture. There is no disloc ation or periosteal reaction. A small plantar spur is present. Degenerative changes are present at th e tibiotalar joint space and subtalar joint space. Moderate severity midfoot degenerative change pres ent only partially imaged on this ankle examination. No fracture of the distal tibia. Soft tissue swelling around the ankle is present. No foreign body in the soft tissues. IMPRESSION: Nondisplaced, nonangulated midshaft fibular fracture. This is approximately 12 cm proxim al to the ankle joint. At the ankle joint degenerative and osteopenic changes are present but no fracture or acute finding s een. Soft tissue swelling present around the ankle.
--- NOTE | 2020-02-04 17:55 | EDPHYS ---
Physician Documentation [facility] Name: Anita Hernadez Age: 84 yrs Sex: Female : 1935 Arrival Date: 02/04/2020 Time: 15:50 Bed 19 Private MD: ED Physician Rivera Nails HPI: 02/03 16:04 This 84 yrs old Female presents to ER via EMS with complaints of Ankle jmm Swelling. 16:04 The patient presents with an injury, pain. Onset: The symptoms/episode began/occurred 2 jmm day(s) ago. Associated signs and symptoms: Pertinent negatives: calf tenderness, fever. Modifying factors: The symptoms are alleviated by nothing, the symptoms are aggravated by nothing. This is an 84 year old female with a history of htn that presents to the ED with complaints of left ankle pain beginning approx 2 days ago. Denies known injury. Podiatry concerned there may be a fracture. Patient is unable to bear weight. . Historical: - Allergies: 15:57 Triamterene; vg1 15:58 Aspirin; vg1 15:58 Mucinex; vg1 15:58 Zyrtec; vg1 - PMHx: 15:58 Arthritis; Diverticulitis; GERD; Hypertension; Hypothyroidism; vg1 - PSHx: 15:58 left breast; right rotator cuff; vg1 - Immunization history:: Adult Immunizations up to date. - Social history:: Smoking status: unknown. ROS: 16:04 Constitutional: Negative for fever, chills, and weight loss, Cardiovascular: Negative jmm for chest pain, palpitations, and edema, Respiratory: Negative for shortness of breath, cough, wheezing, and pleuritic chest pain. 16:04 MS/extremity: Positive for pain. 16:04 All other systems are negative. Exam: 16:04 Constitutional: This is a well developed, well nourished patient who is awake, alert, jmm and in no acute distress. Head/Face: atraumatic. Eyes: EOMI, no conjunctival erythema appreciated ENT: Moist Mucus Membranes Neck: Trachea midline, Supple Chest/axilla: Normal chest wall appearance and motion. Cardiovascular: Regular rate and rhythm. No edema appreciated Respiratory: Normal respirations, no respiratory distress appreciated Abdomen/GI: Non distended, soft Back: Normal ROM Skin: General appearance color normal 16:04 Musculoskeletal/extremity: ROM: intact in all extremities, swelling noted to the left ankle, lateral malleolus ttp, full dorsalis pulse, NVI. 16:04 Skin: Appearance: Color: normal in color. 16:04 Neuro: Orientation: is normal, Mentation: is normal, Memory: is normal. 16:04 Psych: Behavior/mood is pleasant, cooperative. Vital Signs: 15:50 BP 146 / 69; Pulse 66; Resp 16; Pulse Ox 96% on R/A; vg1 15:51 BP 146 / 69; Pulse 70; Resp 18; Temp 98.6(O); Pulse Ox 97% on R/A; vg1 16:31 BP 159 / 75; Pulse 66; Resp 17; Pulse Ox 99% ; hb 17:15 BP 160 / 68; Pulse 65; Resp 14; Pulse Ox 100% on R/A; vg1 17:50 BP 155 / 72; Pulse 65; Resp 16; Pulse Ox 99% on R/A; vg1 Procedures: 19:20 Splinting: Splint applied to left leg using post orthoglass. Examined by me, post [facility] splint application: neurovascular intact, 2+ distal pulses palpable, brisk capillary refill noted, Patient tolerated well. MDM: 16:04 Patient medically screened. [facility] 17:50 Data reviewed: vital signs, nurses notes. Counseling: I had a detailed discussion with roberto the patient and/or guardian regarding: the historical points, exam findings, and any diagnostic results supporting the discharge/admit diagnosis, the need for outpatient follow up, to return to the emergency department if symptoms worsen or persist or if there are any questions or concerns that arise at home. ED course: Patient advised to follow up with orthopedics for further evaluation. Patient understood and agrees with the plan of care. . 02/03 16:04 Order name: Ankle Left 3 View XRAY; Complete Time: 17:16 [facility] 02/03 17:25 Order name: Posterior Leg Splint; Complete Time: 18:13 [facility] 02/03 17:25 Order name: Crutches; Complete Time: 18:13 [facility] Administered Medications: 16:14 Drug: [place] 5 mg-325 mg 1 tabs Route: PO; vg1 17:20 Follow up: Response: No adverse reaction; Pain is decreased; RASS: Alert and Calm (0) vg1 Disposition: 18:53 Co-signature as Attending Physician, Rivera Nails MD I agree with the assessment and kdr plan of care. Disposition: 02/04/20 17:54 Discharged to Home. Impression: Nondisplaced comminuted fracture of shaft of left fibula. - Condition is Stable. - Discharge Instructions: Tibial and Fibular Fracture, Adult. - Prescriptions for Tylenol- Codeine #3 300-30 mg Oral Tablet - take 1 tablet by ORAL route every 6 hours As needed; 30 tablet. - Medication Reconciliation Form, Thank You Letter, Antibiotic Education, Prescription Opioid Use form. - Follow up: Private Physician; When: 2 - 3 days; Reason: Recheck today's complaints, Continuance of care, Re-evaluation by your physician. Signatures: Dispatcher [employer] EDMS Rivera Nails MD MD [facility] Tay Medina PA PA jmm Garcia, Victoria RN RN vg1 Corrections: (The following items were deleted from the chart) 18:27 17:54 02/04/2020 17:54 Discharged to Home. Impression: Nondisplaced comminuted fracture vg1 of shaft of left fibula. Condition is Stable. Forms are Medication Reconciliation Form, Thank You Letter, Antibiotic Education, Prescription Opioid Use. Follow up: Private Physician; When: 2 - 3 days; Reason: Recheck today's complaints, Continuance of care, Re-evaluation by your physician. [facility] 19:19 18:27 This 84 yrs old Female presents to ER via EMS with complaints of Ankle jmm Swelling. jmm
--- NOTE | 2020-02-04 17:55 | ER ---
Nurse's Notes [facility] Name: Anita Hernadez Age: 84 yrs Sex: Female : 1935 Arrival Date: 02/04/2020 Time: 15:50 Bed 19 Private MD: Diagnosis: Nondisplaced comminuted fracture of shaft of left fibula Presentation: 02/03 15:51 Chief complaint: Patient states: Left ankle swelling, denies injury. States started vg1 wearing new shoes recently. Seen wine bottle inspector today and said she needed to get an XRAY. Coronavirus screen: Client denies travel out of the [place] in the last 14 days. Ebola Screen: No symptoms or risks identified at this time. Initial Sepsis Screen: Does the patient meet any 2 criteria? No. Patient's initial sepsis screen is negative. Does the patient have a suspected source of infection? No. Patient's initial sepsis screen is negative. Risk Assessment: Do you want to hurt yourself or someone else? Patient reports no desire to harm self or others. Onset of symptoms was February 02, 2020. 15:51 Method Of Arrival: EMS: [facility] vg1 15:51 Acuity: THERON 4 vg1 Triage Assessment: 15:45 General: Behavior is calm, cooperative. vg1 Historical: - Allergies: 15:57 Triamterene; vg1 15:58 Aspirin; vg1 15:58 Mucinex; vg1 15:58 Zyrtec; vg1 - PMHx: 15:58 Arthritis; Diverticulitis; GERD; Hypertension; Hypothyroidism; vg1 - PSHx: 15:58 left breast; right rotator cuff; vg1 - Immunization history:: Adult Immunizations up to date. - Social history:: Smoking status: unknown. Screenin:45 Abuse screen: Denies threats or abuse. Nutritional screening: No deficits noted. vg1 Tuberculosis screening: No symptoms or risk factors identified. Fall Risk Ambulatory Aid- Crutches/Cane/Walker (15 pts). Gait- Impaired (20 pts.). Total Fisher Fall Scale indicates Low Risk Score (25-44 pts). Side Rails Up X 2. Assessment: 15:40 General: Appears in no apparent distress. comfortable. Pain: Complains of pain in left vg1 ankle Pain currently is 0 out of 10 on a pain scale. Pain began 2-3 days ago. Patient states 0/10 pain when resting but is not able to put any pressure on it. Neuro: Level of Consciousness is awake, alert, obeys commands, Oriented to person, place, time, situation. Cardiovascular: Capillary refill < 3 seconds Patient's skin is warm and dry. Cardiovascular: Pulses are palpable in left foot. Respiratory: Airway is patent Respiratory effort is even, unlabored, Respiratory pattern is regular, symmetrical. GI: No signs and/or symptoms were reported involving the gastrointestinal system. : No signs and/or symptoms were reported regarding the genitourinary system. EENT: No signs and/or symptoms were reported regarding the EENT system. Derm: Skin is intact, Skin is pink, warm \T\ dry. Bruising that is on left ankle. Musculoskeletal: Capillary refill < 3 seconds, in left toes. Range of motion: limited in left ankle Swelling present in left ankle. 16:31 Reassessment: Patient appears in no apparent distress at this time. Patient and/or hb family updated on plan of care and expected duration. Pain level reassessed. Patient is alert, oriented x 3, equal unlabored respirations, skin warm/dry/pink. 17:20 Reassessment: Patient appears in no apparent distress at this time. Patient and/or vg1 family updated on plan of care and expected duration. Pain level reassessed. Patient is alert, oriented x 3, equal unlabored respirations, skin warm/dry/pink. 18:13 Reassessment: Splint applied, discharge ordered, awaiting transportation at this time. hb 18:14 Reassessment: Patient appears in no apparent distress at this time. No changes from vg1 previously documented assessment. Patient and/or family updated on plan of care and expected duration. Pain level reassessed. Patient is alert, oriented x 3, equal unlabored respirations, skin warm/dry/pink. Patient states only feels pain when pressure is applied. Denies pain. Vital Signs: 15:50 BP 146 / 69; Pulse 66; Resp 16; Pulse Ox 96% on R/A; vg1 15:51 BP 146 / 69; Pulse 70; Resp 18; Temp 98.6(O); Pulse Ox 97% on R/A; vg1 16:31 BP 159 / 75; Pulse 66; Resp 17; Pulse Ox 99% ; hb 17:15 BP 160 / 68; Pulse 65; Resp 14; Pulse Ox 100% on R/A; vg1 17:50 BP 155 / 72; Pulse 65; Resp 16; Pulse Ox 99% on R/A; vg1 ED Course: 15:50 Patient arrived in ED. vg1 15:51 Janelle Jimenez, RN is Primary Nurse. vg1 15:51 Patient has correct armband on for positive identification. Bed in low position. Call jp3 light in reach. Side rails up X 1. Side rails up X2. Warm blanket given. Ice pack to injury. Verbal reassurance given. Pulse ox on. NIBP on. 15:54 Tay Medina PA is PHCP. [facility] 15:54 Rivera Nails MD is Attending Physician. [facility] 15:55 Triage completed. vg1 16:28 Xray at bedside. vg1 16:40 Ankle Left 3 View XRAY In Process Unspecified. EDMS 18:14 No provider procedures requiring assistance completed. Patient did not have IV access hb during this emergency room visit. 18:22 Arm band placed on right wrist. vg1 Administered Medications: 16:14 Drug: [place] 5 mg-325 mg 1 tabs Route: PO; vg1 17:20 Follow up: Response: No adverse reaction; Pain is decreased; RASS: Alert and Calm (0) vg1 Outcome: 17:54 Discharge ordered by MD. [facility] 18:21 Discharged to home via wheelchair. vg1 18:21 Condition: good 18:21 Discharge instructions given to patient, Instructed on discharge instructions, follow up and referral plans. medication usage, Demonstrated understanding of instructions, follow-up care, medications, Prescriptions given X 1. 18:27 Patient left the ED. vg1 Signatures: Dispatcher [employer] EDMS Tay Medina PA PA jmm Baxter, Heather, RN RN hb Jose Traylor [id number] Janelle Jimenez, RN RN vg1 Corrections: (The following items were deleted from the chart) 18:14 18:13 Reassessment: Splint applied, discharge pending transportation. hb hb
[2020-02-04 19:08] VITALS: TEMP 98.6
[2020-02-04 19:16] VITALS: BP 155/72; O2SAT 99
== END 2020-02-04 18:27 | disposition home or self-care (01) ==
LOC: ER 15:48
PROC: 2W3RX1Z Immobilization of Left Lower Leg using Splint (ICD-10-PCS; principal; 2020-02-04)
DX: S82.455A Nondisplaced comminuted fracture of shaft of left fibula, initial encounter for closed fracture (principal); I10 Essential (primary) hypertension; Z88.6 Allergy status to analgesic agent; Z88.8 Allergy status to other drugs, medicaments and biological substances
CPT/HCPCS: 99284